=== PATIENT | female | born 1945 | race Two or more races ===

== ENCOUNTER 2017-10-07 12:17 | Inpatient (IN) | payer MEDICARE, MEDICAID ==
[~2017-10-07] VITALS: Ht 160 cm; Wt 72.6 kg
[2017-10-07] MEDS ORDERED: NS 1000ml 2,200 ML IVLG ONE (12:30)
[2017-10-07 13:50] LABS: BASOPHILS % (AUTO) 0.8 % (0.0-2.0); EOSINOPHILS % (AUTO) 1.2 % (0.0-3.0); HEMATOCRIT 45.8 % (37.0-47.0); HEMOGLOBIN 14.4 G/DL (12.0-16.0); LYMPHOCYTES % (AUTO) 37.7 % (20.0-45.0); MEAN CORPUSCULAR VOLUME 91 FL (80-99); MONOCYTES % (AUTO) 6.4 % (1.0-10.0); NEUTROPHILS % (AUTO) 53.9 % (45.0-75.0); PLATELET COUNT 161 K/UL (150-450); RED BLOOD COUNT 5.04 M/UL (4.20-5.40); RED CELL DISTRIBUTION WIDTH 12.3 % (11.6-14.8); WHITE BLOOD COUNT 8.6 K/UL (4.8-10.8)
[2017-10-07 13:52] VITALS: BP 140/68
[2017-10-07 14:02] LABS: ANION GAP 8 mmol/L (5-15); BLOOD UREA NITROGEN 22 mg/dL (7-18); CALCIUM 8.1 MG/DL (8.5-10.1); CARBON DIOXIDE 31 MMOL/L (21-32); CHLORIDE 100 MMOL/L (98-107); CREATININE 1.2 MG/DL (0.55-1.30); POTASSIUM 4.2 MMOL/L (3.5-5.1); SODIUM 139 MMOL/L (136-145)
--- NOTE | 2017-10-07 14:11 | Diagnostic Imaging Report ---
Indication: Chest pain Technique: One view of the chest Comparison: none Findings: There is some atelectasis at the right lung base. The heart is borderline enlarged. The remainder of the lungs and pleural spaces are clear. Impression: Right atelectasis. No acute process otherwise Borderline cardiomegaly
[2017-10-07 14:17] LABS: ALANINE AMINOTRANSFERASE 27 U/L (12-78); ALBUMIN 3.3 G/DL (3.4-5.0); ALKALINE PHOSPHATASE 87 U/L (46-116); ASPARTATE AMINO TRANSFERASE 18 U/L (15-37); BILIRUBIN,TOTAL 0.6 MG/DL (0.2-1.0); CKMB 1.2 NG/ML (0.0-3.6); CREATINE KINASE 74 U/L (26-308)
[2017-10-07] MEDS ORDERED: Enoxaparin 80mg Inj SUBQ ONE (14:30)
[2017-10-07] MEDS ORDERED: Aspirin Baby 81mg ORAL ONE (14:30)
[2017-10-07 15:30] LABS: APPEARANCE,URINE CLEAR; BILIRUBIN, URINE NEGATIVE (NEGATIVE); COLOR,URINE PALE YELLOW; GLUCOSE, URINE (UA) 2+ (NEGATIVE); KETONES,URINE NEGATIVE (NEGATIVE); LEUKOCYTE ESTERASE ,URINE NEGATIVE (NEGATIVE); NITRITE,URINE NEGATIVE (NEGATIVE); PH,URINE 5 (4.5-8.0); PROTEIN,URINE NEGATIVE (NEGATIVE); UROBILINOGEN,URINE NORMAL MG/DL (0.0-1.0)
[2017-10-07] MEDS ORDERED: Morphine Sulfate 4mg/ml Inj IVP PRN (15:45)
[2017-10-07] MEDS ORDERED: Albuterol/Ipratropium 3ml neb HHN PRN (15:45)
[2017-10-07] MEDS ORDERED: Miralax 17gm pkt ORAL PRN (15:45)
[2017-10-07] MEDS ORDERED: Promethazine/Codeine 5ml UD ORAL PRN (15:45)
[2017-10-07] MEDS ORDERED: LORazepam Inj 2mg/ml 1ml IV PRN (15:45)
[2017-10-07] MEDS ORDERED: LISINOPRIL5 MG ORAL (15:56)
[2017-10-07] MEDS ORDERED: LANTUS SOL100 UNIT/1 SUBQ (15:56)
[2017-10-07] MEDS ORDERED: TRADJENTA5 MG PO (15:56)
[2017-10-07] MEDS ORDERED: ATORVASTATIN CA20 MG ORAL (15:56)
[2017-10-07] MEDS ORDERED: ACTOS15 MG ORAL (16:03)
--- NOTE | 2017-10-07 16:19 | Emergency Room Report ---
History of Present Illness General Chief Complaint: Chest Pain Source: Patient, Family Member Present Illness HPI Patient complains of cough and congestion and chest pain. The patient has had a respiratory illness for the past month. She has had cough and congestion. She has had allergies a period in over the past couple days has developed chest pain and back pain. She denies abdominal pain. She denies nausea or vomiting. She denies dysuria or hematuria. She has no other complaints. Allergies: Coded Allergies: No Known Allergies (Unverified , 10/07/17) Patient History Past Medical History: see triage record, DM, HTN Social History: Denies: smoking, alcohol use, drug use Reviewed Nursing Documentation: PMH: Agreed, PSxH: Agreed Nursing Documentation-PMH Past Medical History: No History, Except For Hx Hypertension: Yes Hx Diabetes: Yes Review of Systems All Other Systems: negative except mentioned in HPI Physical Exam Vital Signs Date Time Temp Pulse Resp B/P (MAP) Pulse Ox O2 Delivery O2 Flow Rate FiO2 10/07/17 12:01 99.0 104 16 123/86 96 Room Air Sp02 EP Interpretation: reviewed, normal General Appearance: no apparent distress, alert, GCS 15, non-toxic Head: normocephalic, atraumatic Eyes: bilateral eye normal inspection, bilateral eye PERRL ENT: hearing grossly normal, normal pharynx, no angioedema, normal voice Neck: full range of motion, supple/symm/no masses Respiratory: chest non-tender, lungs clear, normal breath sounds, speaking full sentences Cardiovascular #1: regular rate, rhythm, no edema Gastrointestinal: normal bowel sounds, non tender, soft, non-distended, no guarding, no rebound Rectal: deferred Musculoskeletal: back normal, gait/station normal, normal range of motion, non- tender Neurologic: alert, oriented x3, responsive, motor strength/tone normal, sensory intact, speech normal Psychiatric: judgement/insight normal, memory normal, mood/affect normal, no suicidal/homicidal ideation Skin: normal color, no rash, warm/dry, well hydrated Medical Decision Making Diagnostic Impression: Primary Impression: NSTEMI (non-ST elevated myocardial infarction) Additional Impression: Bronchitis ER Course This patient presented with respiratory symptoms. However, she does not have an elevated troponin. Chest x-ray showed borderline cardiomegaly. She was given aspirin and subcutaneous Lovenox. She is admitted for further evaluation by cardiology. There is no evidence of pneumonia or bacterial infection. She may have a viral illness versus a chronic cough/GERD. Regardless, this patient was admitted for further evaluation and for NSTEMI. This patient is critically ill. This patient required complex medical decision- making, aggressive intervention, extensive laboratory workup and monitoring. Critical care time: 40 minutes. Laboratory Tests Test 10/07/17 12:05 10/07/17 14:28 White Blood Count 8.6 K/UL (4.8-10.8) Red Blood Count 5.04 M/UL (4.20-5.40) Hemoglobin 14.4 G/DL (12.0-16.0) Hematocrit 45.8 % (37.0-47.0) Mean Corpuscular Volume 91 FL (80-99) Mean Corpuscular Hemoglobin 28.5 PG (27.0-31.0) Mean Corpuscular Hemoglobin Concent 31.4 G/DL (32.0-36.0) L Red Cell Distribution Width 12.3 % (11.6-14.8) Platelet Count 161 K/UL (150-450) Mean Platelet Volume 13.7 FL (6.5-10.1) H Neutrophils (%) (Auto) 53.9 % (45.0-75.0) Lymphocytes (%) (Auto) 37.7 % (20.0-45.0) Monocytes (%) (Auto) 6.4 % (1.0-10.0) Eosinophils (%) (Auto) 1.2 % (0.0-3.0) Basophils (%) (Auto) 0.8 % (0.0-2.0) Prothrombin Time 10.1 SEC (9.30-11.50) Prothrombin Time INR 1.0 (0.9-1.1) PTT 28 SEC (23-33) Sodium Level 139 MMOL/L (136-145) Potassium Level 4.2 MMOL/L (3.5-5.1) Chloride Level 100 MMOL/L (98-107) Carbon Dioxide Level 31 MMOL/L (21-32) Anion Gap 8 mmol/L (5-15) Blood Urea Nitrogen 22 mg/dL (7-18) H Creatinine 1.2 MG/DL (0.55-1.30) Estimate Glomerular Filtration Rate mL/min (>60) Glucose Level 300 MG/DL (74-106) H Lactic Acid Level 1.70 mmol/L (0.66-2.22) Calcium Level 8.1 MG/DL (8.5-10.1) L Total Bilirubin 0.6 MG/DL (0.2-1.0) Aspartate Amino Transferase (AST) 18 U/L (15-37) Alanine Aminotransferase (ALT) 27 U/L (12-78) Alkaline Phosphatase 87 U/L (46-116) Total Creatine Kinase 74 U/L (26-308) Creatine Kinase MB 1.2 NG/ML (0.0-3.6) Creatine Kinase MB Relative Index 1.6 Troponin I 0.132 ng/mL (0.000-0.056) Pro-B-Type Natriuretic Peptide 401 pg/mL (0-125) H Total Protein 6.6 G/DL (6.4-8.2) Albumin 3.3 G/DL (3.4-5.0) L Globulin 3.3 g/dL Albumin/Globulin Ratio 1.0 (1.0-2.7) Urine Color Pale yellow Urine Appearance Clear Urine pH 5 (4.5-8.0) Urine Specific [place] 1.010 (1.005-1.035) Urine Protein Negative (NEGATIVE) Urine Glucose (UA) 2+ (NEGATIVE) H Urine Ketones Negative (NEGATIVE) Urine Occult Blood Negative (NEGATIVE) Urine Nitrite Negative (NEGATIVE) Urine Bilirubin Negative (NEGATIVE) Urine Urobilinogen Normal MG/DL (0.0-1.0) Urine Leukocyte Esterase Negative (NEGATIVE) Microbiology Date/Time Source Procedure Growth Status 10/07/17 12:05 Nasal Nares Influenza Types A,B Antigen (IDRIS) - Final Complete EKG Diagnostic Results Rate: tachycardiac Rhythm: other - s.tachycardia ST Segments: no acute changes Other Impression Qwave in lead V1 Chest X-Ray Diagnostic Results Chest X-Ray Diagnostic Results : Chest X-Ray Ordered: Yes # of Views/Limited/Complete: 1 View Indication: Chest Pain EP Interpretation: No Interpretation: no consolidation, no effusion, no pneumothorax, no acute cardiopulmonary disease, other - cardiomegaly Impression: No acute disease Electronically Signed by: Yudelka Last Vital Signs Date Time Temp Pulse Resp B/P (MAP) Pulse Ox O2 Delivery O2 Flow Rate FiO2 10/07/17 13:52 99.0 82 20 140/68 96 Room Air Disposition: ADMITTED INPATIENT Condition: Serious Referrals: NON PHYSICIAN (PCP) YARELIS BAXTER D.O. Oct 07, 2017 16:19
[2017-10-07 17:07] VITALS: BP 145/69
--- NOTE | 2017-10-07 17:20 | Cardiac Electrophysiology PN ---
Subjective Subjective Seen in ER. Consult dictated [id number] Objective Last 24 Hour Vital Signs Date Time Temp Pulse Resp B/P (MAP) Pulse Ox O2 Delivery O2 Flow Rate FiO2 10/07/17 17:07 99.0 83 18 145/69 96 Room Air 10/07/17 13:52 99.0 82 20 140/68 96 Room Air 10/07/17 13:52 82 20 Room Air 10/07/17 12:01 99.0 104 16 123/86 96 Room Air Laboratory Tests Test 10/07/17 12:05 10/07/17 14:28 White Blood Count 8.6 K/UL (4.8-10.8) Red Blood Count 5.04 M/UL (4.20-5.40) Hemoglobin 14.4 G/DL (12.0-16.0) Hematocrit 45.8 % (37.0-47.0) Mean Corpuscular Volume 91 FL (80-99) Mean Corpuscular Hemoglobin 28.5 PG (27.0-31.0) Mean Corpuscular Hemoglobin Concent 31.4 G/DL (32.0-36.0) L Red Cell Distribution Width 12.3 % (11.6-14.8) Platelet Count 161 K/UL (150-450) Mean Platelet Volume 13.7 FL (6.5-10.1) H Neutrophils (%) (Auto) 53.9 % (45.0-75.0) Lymphocytes (%) (Auto) 37.7 % (20.0-45.0) Monocytes (%) (Auto) 6.4 % (1.0-10.0) Eosinophils (%) (Auto) 1.2 % (0.0-3.0) Basophils (%) (Auto) 0.8 % (0.0-2.0) Prothrombin Time 10.1 SEC (9.30-11.50) Prothromb Time International Ratio 1.0 (0.9-1.1) Activated Partial Thromboplast Time 28 SEC (23-33) Sodium Level 139 MMOL/L (136-145) Potassium Level 4.2 MMOL/L (3.5-5.1) Chloride Level 100 MMOL/L (98-107) Carbon Dioxide Level 31 MMOL/L (21-32) Anion Gap 8 mmol/L (5-15) Blood Urea Nitrogen 22 mg/dL (7-18) H Creatinine 1.2 MG/DL (0.55-1.30) Estimat Glomerular Filtration Rate mL/min (>60) Glucose Level 300 MG/DL (74-106) H Lactic Acid Level 1.70 mmol/L (0.66-2.22) Calcium Level 8.1 MG/DL (8.5-10.1) L Total Bilirubin 0.6 MG/DL (0.2-1.0) Aspartate Amino Transf (AST/SGOT) 18 U/L (15-37) Alanine Aminotransferase (ALT/SGPT) 27 U/L (12-78) Alkaline Phosphatase 87 U/L (46-116) Total Creatine Kinase 74 U/L (26-308) Creatine Kinase MB 1.2 NG/ML (0.0-3.6) Creatine Kinase MB Relative Index 1.6 Troponin I 0.132 ng/mL (0.000-0.056) Pro-B-Type Natriuretic Peptide 401 pg/mL (0-125) H Total Protein 6.6 G/DL (6.4-8.2) Albumin 3.3 G/DL (3.4-5.0) L Globulin 3.3 g/dL Albumin/Globulin Ratio 1.0 (1.0-2.7) Urine Color Pale yellow Urine Appearance Clear Urine pH 5 (4.5-8.0) Urine Specific [place] 1.010 (1.005-1.035) Urine Protein Negative (NEGATIVE) Urine Glucose (UA) 2+ (NEGATIVE) H Urine Ketones Negative (NEGATIVE) Urine Occult Blood Negative (NEGATIVE) Urine Nitrite Negative (NEGATIVE) Urine Bilirubin Negative (NEGATIVE) Urine Urobilinogen Normal MG/DL (0.0-1.0) Urine Leukocyte Esterase Negative (NEGATIVE) Microbiology Date/Time Source Procedure Growth Status 10/07/17 12:05 Nasal Nares Influenza Types A,B Antigen (IDRIS) - Final Complete TRINIDAD ARNOLD Oct 07, 2017 17:20
[2017-10-07] MEDS: Cefepime HCl 2 GM in NS 110 ML IV SCH (18:27)
[2017-10-07] MEDS: NovoLOG Insulin Flexpen SUBQ SCH ×2 (18:30→20:52)
[2017-10-07] MEDS ORDERED: Vancomycin 1250mg/D5W 250ml IVPB ONE (20:00)
[2017-10-07 20:10] VITALS: BP 129/66
[2017-10-07] MEDS: Metoprolol 25mg tab ORAL SCH (20:50)
[2017-10-07] MEDS: Heparin 5000 units/ml inj SUBQ SCH (20:51)
--- NOTE | 2017-10-07 22:33 | Consultation ---
DATE OF CONSULTATION: 10/07/2017 CARDIOLOGY CONSULTATION CONSULTING PHYSICIAN: Agus Reed M.D. REASON FOR CONSULTATION: Chest pain. HISTORY OF PRESENT ILLNESS: The patient is a very pleasant 72-year-old lady with history of hypertension, diabetes, hyperlipidemia, and obesity, who presented to the emergency room with cough and congestion as well as chest pain. The patient has been having respiratory illness for the last one month. The patient denies any abdominal pain, nausea, vomiting, near syncope, or presyncope. Blood pressure in the emergency room was 122/86 with a pulse of 104. Her troponin, however, was elevated at 0.132. A Cardiology consultation was obtained for further evaluation and management. PAST MEDICAL HISTORY: 1. Hypertension. 2. Diabetes. 3. Hyperlipidemia. MEDICATIONS: Per reconciliation include lisinopril and diabetes medication. SOCIAL HISTORY: She lives at home. Does not smoke or drink alcohol. FAMILY HISTORY: Noncontributory. REVIEW OF SYSTEMS: Review of systems was performed and was negative other than what was mentioned in the history of present illness. PHYSICAL EXAMINATION: VITAL SIGNS: Blood pressure of 145/67, pulse 82, respirations 18, and temperature 99 degrees. HEAD AND NECK: Shows no JVD. LUNGS: Coarse rhonchi. CARDIOVASCULAR: Shows regular S1 and S2 with no gallop or murmur. ABDOMEN: Soft. EXTREMITIES: No pitting edema. LABORATORY AND DIAGNOSTIC DATA: Her EKG shows sinus rhythm with nonspecific ST-T wave abnormalities. Her echocardiogram today showed normal left ventricular systolic function, ejection fraction of 60% with no evidence of pericardial effusion. No aortic regurgitation. Labs, white count of 8.6, hemoglobin 14.4, hematocrit 45.8, and platelet count of 161. Sodium 139, potassium 4.2, BUN of 22, creatinine 1.2, and glucose of 300. Troponin is 0.132. ASSESSMENT AND PLAN: 1. Troponin leak. CPK and CK-MB are both normal. The patient has only mild azotemia. I will give the patient aspirin, beta-tam, and statin. Repeat cardiac enzymes. Her ejection fraction is also within normal range of 60%. Follow up troponins. The patient may need a stress test or need to be transferred for cardiac catheterization. 2. Hypertension. Start the patient on Lopressor and reevaluate troponin. 3. Diabetes. 4. Shortness of breath, possible pneumonia, on vancomycin and cefepime. Under the management of Dr. Yen. Thank you very much, Dr. Chaudhary, for allowing me to participate in the care of this patient. Please do not hesitate to contact me if you have any questions regarding my evaluation. Agus Reed M.D. DR: Luna JOB#: [id number] CC:
[2017-10-07] MEDS ORDERED: Vancomycin 1 GM in D5W 275 ML IV SCH (23:00)
[2017-10-08 00:22] VITALS: BP 133/76
[2017-10-08] MEDS: NovoLOG Insulin Flexpen SUBQ SCH ×4 (06:10→21:12)
[2017-10-08 06:27] LABS: BASOPHILS % (AUTO) 0.6 % (0.0-2.0); EOSINOPHILS % (AUTO) 1.8 % (0.0-3.0); HEMOGLOBIN 12.4 G/DL (12.0-16.0); LYMPHOCYTES % (AUTO) 46.6 % (20.0-45.0); MEAN CORPUSCULAR VOLUME 92 FL (80-99); MONOCYTES % (AUTO) 6.9 % (1.0-10.0); NEUTROPHILS % (AUTO) 44.1 % (45.0-75.0); PLATELET COUNT 148 K/UL (150-450); RED BLOOD COUNT 4.03 M/UL (4.20-5.40); RED CELL DISTRIBUTION WIDTH 12.6 % (11.6-14.8)
[2017-10-08 06:57] LABS: ALBUMIN 2.7 G/DL (3.4-5.0); ANION GAP 5 mmol/L (5-15); BLOOD UREA NITROGEN 17 mg/dL (7-18); CALCIUM 7.4 MG/DL (8.5-10.1); CARBON DIOXIDE 29 MMOL/L (21-32); CHLORIDE 106 MMOL/L (98-107); CHOLESTEROL 148 MG/DL (< 200); HDL CHOLESTEROL 37 MG/DL (40-60); PHOSPHORUS 3.1 MG/DL (2.5-4.9); POTASSIUM 3.5 MMOL/L (3.5-5.1); SODIUM 140 MMOL/L (136-145); TRIGLYCERIDES 211 MG/DL (30-150)
[2017-10-08 08:00] VITALS: BP 143/77
[2017-10-08] MEDS: Aspirin EC 81mg tab ORAL SCH (09:18)
[2017-10-08] MEDS: Metoprolol 25mg tab ORAL SCH ×3 (09:20→21:07)
[2017-10-08] MEDS: Heparin 5000 units/ml inj SUBQ SCH ×2 (09:20→21:13)
[2017-10-08 12:00] VITALS: BP 129/67
--- NOTE | 2017-10-08 15:50 | Consultation ---
History of Present Illness General Date patient seen: Oct 08, 2017 Chief Complaint: Chest Pain Reason for Consultation: dysnea Present Illness HPI 72 year old female with hx of HTN, COPD presented to ER with complains of cough and congestion and chest pain. The patient has had a respiratory illness for the past month. She has had cough and congestion. Pt developed in the couple of days days chest pain and back pain. right shoulder pain She denies abdominal pain. She denies nausea or vomiting. Her troponin was positive and she is admitted to telemetry for further work up. Allergies: Coded Allergies: No Known Allergies (Unverified , 10/07/17) Medication History Scheduled Atorvastatin Calcium* (Atorvastatin Calcium*), 20 MG ORAL BEDTIME, (Reported) Insulin Glargine (Lantus), 0 SUBQ BEDTIME, (Reported) Lisinopril (Lisinopril*), 5 MG ORAL DAILY, (Reported) Pioglitazone Hcl* (Actos*), 15 MG ORAL DAILY, (Reported) Miscellaneous Medications Linagliptin (Tradjenta), 5 MG PO, (Reported) Patient History Healthcare decision maker N Resuscitation status Full Code Advanced Directive on File Past Medical/Surgical History Past Medical/Surgical History: (1) History of hypertension Review of Systems Constitutional: Reports: malaise, weakness Respiratory: Reports: shortness of breath, sputum Cardiovascular: Reports: chest pain Gastrointestinal: Reports: no symptoms Genitourinary: Reports: no symptoms Skin: Reports: no symptoms Physical Exam General Appearance: WD/WN Lines, tubes and drains: peripheral HEENT: normocephalic, atraumatic Neck: non-tender, normal alignment Respiratory/Chest: chest wall non-tender, lungs clear Breasts: no masses Cardiovascular/Chest: normal peripheral pulses Abdomen: normal bowel sounds Genitourinary/Rectal: normal genital exam Last 24 Hour Vital Signs Date Time Temp Pulse Resp B/P (MAP) Pulse Ox O2 Delivery O2 Flow Rate FiO2 10/08/17 12:00 72 10/08/17 12:00 97.2 71 18 129/67 94 Room Air 10/08/17 09:20 78 143/77 10/08/17 08:00 68 10/08/17 08:00 97.0 70 19 143/77 94 Room Air 10/08/17 06:45 65 20 Room Air 21 1/4/18 04:00 66 10/08/17 00:22 97.7 67 20 133/76 94 Room Air 10/08/17 00:00 67 10/07/17 20:50 77 129/66 10/07/17 20:10 96.8 77 20 129/66 94 10/07/17 20:00 75 10/07/17 17:15 99.0 83 18 145/69 96 Room Air 10/07/17 17:07 99.0 83 18 145/69 96 Room Air Intake and Output 10/07/17 10/08/17 19:00 07:00 Intake Total 240 ml Balance 240 ml Intake Oral 240 ml # Voids 1 Laboratory Tests Test 10/07/17 18:30 10/08/17 03:15 Troponin I 0.532 ng/mL (0.000-0.056) 0.372 ng/mL (0.000-0.056) White Blood Count 8.0 K/UL (4.8-10.8) Red Blood Count 4.03 M/UL (4.20-5.40) L Hemoglobin 12.4 G/DL (12.0-16.0) Hematocrit 37.0 % (37.0-47.0) Mean Corpuscular Volume 92 FL (80-99) Mean Corpuscular Hemoglobin 30.7 PG (27.0-31.0) Mean Corpuscular Hemoglobin Concent 33.4 G/DL (32.0-36.0) Red Cell Distribution Width 12.6 % (11.6-14.8) Platelet Count 148 K/UL (150-450) L Mean Platelet Volume 11.9 FL (6.5-10.1) H Neutrophils (%) (Auto) 44.1 % (45.0-75.0) L Lymphocytes (%) (Auto) 46.6 % (20.0-45.0) H Monocytes (%) (Auto) 6.9 % (1.0-10.0) Eosinophils (%) (Auto) 1.8 % (0.0-3.0) Basophils (%) (Auto) 0.6 % (0.0-2.0) Sodium Level 140 MMOL/L (136-145) Potassium Level 3.5 MMOL/L (3.5-5.1) Chloride Level 106 MMOL/L (98-107) Carbon Dioxide Level 29 MMOL/L (21-32) Anion Gap 5 mmol/L (5-15) Blood Urea Nitrogen 17 mg/dL (7-18) Creatinine 1.0 MG/DL (0.55-1.30) Estimat Glomerular Filtration Rate mL/min (>60) Glucose Level 182 MG/DL (74-106) #H Calcium Level 7.4 MG/DL (8.5-10.1) L Phosphorus Level 3.1 MG/DL (2.5-4.9) Albumin 2.7 G/DL (3.4-5.0) L Triglycerides Level 211 MG/DL (30-150) H Cholesterol Level 148 MG/DL (< 200) LDL Cholesterol 85 mg/dL (<100) HDL Cholesterol 37 MG/DL (40-60) L Cholesterol/HDL Ratio 4.0 (3.3-4.4) Thyroid Stimulating Hormone (TSH) 0.604 uiU/mL (0.358-3.740) Free Thyroxine 0.90 NG/DL (0.76-1.46) Height (Feet): 5 Height (Inches): 3.00 Weight (Pounds): 160 Medications Current Medications Medications (Trade) Dose Ordered Sig/Hair Route PRN Reason Start Time Stop Time Status Last Admin Dose Admin Acetaminophen (Tylenol) 650 mg Q4H PRN ORAL T>100.5 10/07/17 15:45 11/06/17 15:44 10/08/17 09:23 Albuterol/ Ipratropium (Albuterol/ Ipratropium) 3 ml Q4H PRN HHN Shortness of Breath 10/07/17 15:45 10/12/17 15:44 Aspirin (Ecotrin) 81 mg DAILY ORAL 10/08/17 09:00 11/07/17 08:59 10/08/17 09:18 Atorvastatin Calcium (Lipitor) 10 mg BEDTIME ORAL 10/07/17 21:00 11/06/17 20:59 10/07/17 20:50 Cefepime HCl 2 gm/ Sodium Chloride 110 ml @ 220 mls/hr DAILY@1800 IV 10/07/17 18:00 10/14/17 17:59 10/07/17 18:27 Dextrose (Dextrose 50%) STAT PRN IV Hypoglycemia 10/07/17 15:45 11/06/17 15:44 Heparin Sodium (Porcine) (Heparin 5000 units/ml) 5,000 units EVERY 12 HOURS SUBQ 10/07/17 21:00 11/06/17 20:59 10/08/17 09:20 Insulin Aspart (NovoLOG) BEFORE MEALS AND HS SUBQ 10/07/17 18:30 11/06/17 18:29 10/08/17 11:54 Lorazepam (Ativan 2mg/ml 1ml) 2 mg Q2H PRN IV For Anxiety 10/07/17 15:45 10/14/17 15:44 Metoprolol Tartrate (Lopressor) 25 mg Q12HR ORAL 10/07/17 21:00 11/06/17 20:59 10/08/17 09:20 Morphine Sulfate (Morphine Sulfate) 4 mg Q4H PRN IVP Severe Pain (Pain Scale 7-10) 10/07/17 15:45 10/14/17 15:44 Ondansetron HCl (Zofran) 4 mg Q6H PRN IVP Nausea & Vomiting 10/07/17 15:45 11/06/17 15:44 Polyethylene Glycol (Miralax) 17 gm DAILYPRN PRN ORAL Constipation 10/07/17 15:45 11/06/17 15:44 Promethazine HCl/ Codeine (Phenergan with Codeine) 5 ml Q4H PRN ORAL For Cough 10/07/17 15:45 11/06/17 15:44 Sodium Chloride 1,000 ml @ 50 mls/hr Q20H IV 10/07/17 17:00 11/06/17 16:59 10/08/17 13:07 Vancomycin HCl (Vanco rx to dose) 1 ea DAILY PRN MISC PER RX PROTOCOL 10/07/17 17:00 11/06/17 16:59 Vancomycin/Sodium Chloride 250 ml @ 166.667 mls/hr Q24H IVPB 10/08/17 20:00 10/13/17 19:59 Assessment/Plan Problem List: (1) NSTEMI (non-ST elevated myocardial infarction) ICD Codes: I21.4 - Non-ST elevation (NSTEMI) myocardial infarction SNOMED: 874856593 (2) Bronchitis ICD Codes: J40 - Bronchitis, not specified as acute or chronic SNOMED: 54448803 (3) History of hypertension ICD Codes: Z86.79 - Personal history of other diseases of the circulatory system SNOMED: 870603117 Assessment/Plan respiratory treatment serial troponin, echo cardio note reviewed check sputum JEFFREY FERGUSON Oct 08, 2017 15:50
[2017-10-08 16:00] VITALS: BP 134/72
--- NOTE | 2017-10-08 16:27 | Cardiac Electrophysiology PN ---
Assessment/Plan Assessment/Plan 1. Troponin leak 0.5 and 0.3. CPK and CK-MB are both normal. The patient has only mild azotemia. Continue aspirin, Lopressor 25 bid, and statin. Her ejection fraction is also within normal range of 60%. Will schedule for nuclear stress test tomorrow. 2. Hypertension.On Lopressor 3. Diabetes. 4. Shortness of breath, possible pneumonia, on vancomycin and cefepime. Under the management of Dr. Yen. Subjective Subjective Feeling better. No chest pain or SOB. RN at bedside. Objective Last 24 Hour Vital Signs Date Time Temp Pulse Resp B/P (MAP) Pulse Ox O2 Delivery O2 Flow Rate FiO2 10/08/17 12:00 72 10/08/17 12:00 97.2 71 18 129/67 94 Room Air 10/08/17 09:20 78 143/77 10/08/17 08:00 68 10/08/17 08:00 97.0 70 19 143/77 94 Room Air 10/08/17 06:45 65 20 Room Air 21 10/08/17 04:00 66 10/08/17 00:22 97.7 67 20 133/76 94 Room Air 10/08/17 00:00 67 10/07/17 20:50 77 129/66 10/07/17 20:10 96.8 77 20 129/66 94 10/07/17 20:00 75 10/07/17 17:15 99.0 83 18 145/69 96 Room Air 10/07/17 17:07 99.0 83 18 145/69 96 Room Air Intake and Output 10/07/17 10/08/17 19:00 07:00 Intake Total 240 ml Balance 240 ml Intake Oral 240 ml # Voids 1 Laboratory Tests Test 10/07/17 18:30 10/08/17 03:15 10/08/17 15:31 Troponin I 0.532 ng/mL (0.000-0.056) 0.372 ng/mL (0.000-0.056) Pending White Blood Count 8.0 K/UL (4.8-10.8) Red Blood Count 4.03 M/UL (4.20-5.40) L Hemoglobin 12.4 G/DL (12.0-16.0) Hematocrit 37.0 % (37.0-47.0) Mean Corpuscular Volume 92 FL (80-99) Mean Corpuscular Hemoglobin 30.7 PG (27.0-31.0) Mean Corpuscular Hemoglobin Concent 33.4 G/DL (32.0-36.0) Red Cell Distribution Width 12.6 % (11.6-14.8) Platelet Count 148 K/UL (150-450) L Mean Platelet Volume 11.9 FL (6.5-10.1) H Neutrophils (%) (Auto) 44.1 % (45.0-75.0) L Lymphocytes (%) (Auto) 46.6 % (20.0-45.0) H Monocytes (%) (Auto) 6.9 % (1.0-10.0) Eosinophils (%) (Auto) 1.8 % (0.0-3.0) Basophils (%) (Auto) 0.6 % (0.0-2.0) Sodium Level 140 MMOL/L (136-145) Potassium Level 3.5 MMOL/L (3.5-5.1) Chloride Level 106 MMOL/L (98-107) Carbon Dioxide Level 29 MMOL/L (21-32) Anion Gap 5 mmol/L (5-15) Blood Urea Nitrogen 17 mg/dL (7-18) Creatinine 1.0 MG/DL (0.55-1.30) Estimat Glomerular Filtration Rate mL/min (>60) Glucose Level 182 MG/DL (74-106) #H Calcium Level 7.4 MG/DL (8.5-10.1) L Phosphorus Level 3.1 MG/DL (2.5-4.9) Albumin 2.7 G/DL (3.4-5.0) L Triglycerides Level 211 MG/DL (30-150) H Cholesterol Level 148 MG/DL (< 200) LDL Cholesterol 85 mg/dL (<100) HDL Cholesterol 37 MG/DL (40-60) L Cholesterol/HDL Ratio 4.0 (3.3-4.4) Thyroid Stimulating Hormone (TSH) 0.604 uiU/mL (0.358-3.740) Free Thyroxine 0.90 NG/DL (0.76-1.46) Microbiology Date/Time Source Procedure Growth Status 10/07/17 12:05 Nasal Nares Influenza Types A,B Antigen (IDRIS) - Final Complete Objective HEAD AND NECK: Shows no JVD. LUNGS: Coarse rhonchi. CARDIOVASCULAR: Shows regular S1 and S2 with no gallop or murmur. ABDOMEN: Soft. EXTREMITIES: No pitting edema. TRINIDAD ARNOLD Oct 08, 2017 16:27
[2017-10-08] MEDS: Cefepime HCl 2 GM in NS 110 ML IV SCH (17:06)
[2017-10-08 20:00] VITALS: BP 147/76
[2017-10-08] MEDS: Vancomycin 750mg/NS 250ml IVPB SCH (20:30)
--- NOTE | 2017-10-08 20:30 | History and Physical Report ---
DATE OF ADMISSION: 10/07/2017 TIME SEEN: At 2 p.m. CONSULTANTS: 1. Jovi Chaudhary D.O. 2. Agus Reed M.D. 3. Christian Yen M.D. CHIEF COMPLAINT: Chest pain. BRIEF HISTORY: The patient is a 72-year-old female, who lives at home, presents to [place] ER last night with history of chest pain substernal and sharp. No dizziness. No loss of consciousness. The patient was diagnosed with NSTEMI and coughing and chest pain being admitted to [facility] for further care. Currently, calm in bed, slight chest pain. No complaint. PAST MEDICAL HISTORY: Includes diabetes, hypercholesterol, and asthma. PAST SURGICAL HISTORY: None. MEDICATIONS: Include vancomycin, Ecotrin, heparin, Lopressor, Lipitor, NovoLog, cefepime, vancomycin, codeine, Ativan, Zofran, MiraLAX, morphine, Tylenol, and albuterol. ALLERGIES: Denies. SOCIAL HISTORY: No smoking. No alcohol. No intravenous drug use. FAMILY HISTORY: Noncontributory. REVIEW OF SYSTEMS: Slight chest pain. Slight short of breath. No nausea, vomiting, or diarrhea. PHYSICAL EXAMINATION: GENERAL: Calm in bed, oriented x2, in no acute distress. VITAL SIGNS: Show temperature is 97, pulse 71, respirations 18, and blood pressure 129/67. CARDIOVASCULAR: No murmur. LUNGS: Distant and clear. ABDOMEN: Bowel sounds positive. Nontender. Nondistended. EXTREMITIES: No cyanosis or edema. NEUROLOGIC: The patient moves all extremities, slightly weak. LABORATORY DATA: Labs show sodium 148 otherwise CBC is normal. Glucose is 182. Troponin is 0.52, second one is 0.37. INR is 1.0. PTT is 28. Urinalysis is 2+ glucose. ASSESSMENT: 1. Non-ST segment elevation myocardial infarction. 2. Chest pain. 3. Cough. 4. Asthma. 5. Hypercholesterol. PLAN: 1. Troponin every 8 hours x3. 2. EKG in the morning. 3. Pain control. 4. O2 and pulmonary treatment. 5. Dietary followup. 6. Blood sugar control. 7. OT, PT, and dietary evaluation. 8. CBC and BMP in the morning. 9. Dr. Reed and Dr. Yen to consult. Jovi Chaudhary D.O. DR: JUSTYNA JOB#: [id number] CC:
[2017-10-09] VITALS: BP 140/75
[2017-10-09 04:00] VITALS: BP 152/82
[2017-10-09] MEDS ORDERED: Lexiscan 0.4mg/5ml syringe IV ONE (06:00)
[2017-10-09] MEDS: NovoLOG Insulin Flexpen SUBQ SCH ×4 (06:36→20:57)
[2017-10-09 07:32] LABS: BASOPHILS % (AUTO) 0.8 % (0.0-2.0); EOSINOPHILS % (AUTO) 1.6 % (0.0-3.0); HEMOGLOBIN 13.1 G/DL (12.0-16.0); LYMPHOCYTES % (AUTO) 43.4 % (20.0-45.0); MEAN CORPUSCULAR VOLUME 92 FL (80-99); MONOCYTES % (AUTO) 6.2 % (1.0-10.0); NEUTROPHILS % (AUTO) 48.2 % (45.0-75.0); PLATELET COUNT 164 K/UL (150-450); RED BLOOD COUNT 4.36 M/UL (4.20-5.40); RED CELL DISTRIBUTION WIDTH 12.6 % (11.6-14.8); WHITE BLOOD COUNT 8.6 K/UL (4.8-10.8)
[2017-10-09 08:00] LABS: ANION GAP 9 mmol/L (5-15); BLOOD UREA NITROGEN 9 mg/dL (7-18); CALCIUM 8.3 MG/DL (8.5-10.1); CARBON DIOXIDE 28 MMOL/L (21-32); CHLORIDE 105 MMOL/L (98-107); CREATININE 0.8 MG/DL (0.55-1.30); POTASSIUM 3.4 MMOL/L (3.5-5.1); SODIUM 142 MMOL/L (136-145)
[2017-10-09 08:19] VITALS: BP 150/79
[2017-10-09] MEDS: Metoprolol 25mg tab ORAL SCH ×2 (09:00→20:53)
[2017-10-09] MEDS: Aspirin EC 81mg tab ORAL SCH (09:06)
[2017-10-09] MEDS: Heparin 5000 units/ml inj SUBQ SCH ×2 (09:09→20:54)
[2017-10-09 12:00] VITALS: BP 156/98
--- NOTE | 2017-10-09 14:33 | General Progress Note ---
Assessment/Plan Problem List: (1) Asthma ICD Codes: J45.909 - Unspecified asthma, uncomplicated SNOMED: 167975795 (2) Hypercholesteremia ICD Codes: E78.00 - Pure hypercholesterolemia, unspecified SNOMED: 05550892 (3) NSTEMI (non-ST elevated myocardial infarction) ICD Codes: I21.4 - Non-ST elevation (NSTEMI) myocardial infarction SNOMED: 369559437 (4) Bronchitis ICD Codes: J40 - Bronchitis, not specified as acute or chronic SNOMED: 78005556 (5) History of hypertension ICD Codes: Z86.79 - Personal history of other diseases of the circulatory system SNOMED: 687131755 Status: stable, progressing, tolerating diet Assessment/Plan otp tdiet cardio f/u bp pain control cbc bmp am Subjective Constitutional: Reports: weakness Allergies: Coded Allergies: No Known Allergies (Unverified , 10/07/17) All Systems: reviewed and negative except above Subjective sl chest pain sob Objective Last 24 Hour Vital Signs Date Time Temp Pulse Resp B/P (MAP) Pulse Ox O2 Delivery O2 Flow Rate FiO2 10/09/17 12:00 73 10/09/17 12:00 97.3 87 20 156/98 94 Room Air 10/09/17 09:00 67 150/79 10/09/17 08:19 97.2 67 20 150/79 93 Room Air 10/09/17 08:00 86 10/09/17 07:00 78 16 Room Air 21 10/09/17 04:00 69 10/09/17 04:00 98.1 81 20 152/82 95 10/09/17 00:00 65 10/09/17 00:00 98.2 79 20 140/75 94 10/08/17 21:00 67 147/76 10/08/17 20:36 67 18 Room Air 21 10/08/17 20:00 98.1 67 20 147/76 95 10/08/17 20:00 65 10/08/17 16:00 97.7 68 19 134/72 95 Room Air 10/08/17 16:00 65 Intake and Output 10/08/17 10/09/17 19:00 07:00 Intake Total 240 ml 710.000 ml Balance 240 ml 710.000 ml Intake Oral 240 ml 60 ml IV Total 650.000 ml # Voids 1 4 Laboratory Tests 10/08/17 15:31: Troponin I 0.248H 10/09/17 05:45: Troponin I 0.159H, White Blood Count 8.6, Red Blood Count 4.36, Hemoglobin 13.1 , Hematocrit 40.0, Mean Corpuscular Volume 92, Mean Corpuscular Hemoglobin 30.0 , Mean Corpuscular Hemoglobin Concent 32.7, Red Cell Distribution Width 12.6, Platelet Count 164, Mean Platelet Volume 14.9H, Neutrophils (%) (Auto) 48.2, Lymphocytes (%) (Auto) 43.4, Monocytes (%) (Auto) 6.2, Eosinophils (%) (Auto) 1.6, Basophils (%) (Auto) 0.8, Sodium Level 142, Potassium Level 3.4L, Chloride Level 105, Carbon Dioxide Level 28, Anion Gap 9, Blood Urea Nitrogen 9, Creatinine 0.8, Estimat Glomerular Filtration Rate , Glucose Level 172H, Calcium Level 8.3L Height (Feet): 5 Height (Inches): 3.00 Weight (Pounds): 160 General Appearance: lethargic EENT: normal ENT inspection Neck: normal alignment Cardiovascular: regularly irregular Respiratory/Chest: chest wall non-tender, lungs clear, normal breath sounds Abdomen: normal bowel sounds, non tender, soft Extremities: normal inspection Edema: no edema noted Arm (L), no edema noted Arm (R), no edema noted Leg (L), no edema noted Leg (R), no edema noted Pedal (L), no edema noted Pedal (R), no edema noted Generalized Neurologic: responsive, motor weakness Skin: normal pigmentation, warm/dry ROBERT LEONARDO Oct 09, 2017 14:33
--- NOTE | 2017-10-09 14:33 | Diagnostic Imaging Report ---
Indication: Chest pain Technique: Resting exam performed using IV administration 10.8 mCi 99m technetium. SPECT images obtained. Stress portion of the exam was canceled by the referring physician Comparison: none Findings: Resting SPECT images demonstrate a perfusion defect in the anteroseptal wall extending into the apex. Impression: Apical and anteroseptal wall resting defect, consistent with infarct Unable to assess for ischemia in the absence of post stress imaging
--- NOTE | 2017-10-09 15:34 | Pulmonology Progress Note ---
Assessment/Plan Problems: (1) NSTEMI (non-ST elevated myocardial infarction) (2) Bronchitis (3) History of hypertension Assessment/Plan still coughing stress test partially done Findings: Resting SPECT images demonstrate a perfusion defect in the anteroseptal wall extending into the apex. Impression: Apical and anteroseptal wall resting defect, consistent with infarct awaiting cardiology recommendations continue antitussives. Lidocain inhalation for severe cough Subjective ROS Limited/Unobtainable: No Interval Events: still coughing a lot, stress test done Constitutional: Reports: no symptoms HEENT: Repors: no symptoms Respiratory: Reports: no symptoms Allergies: Coded Allergies: No Known Allergies (Unverified , 10/07/17) Objective Last 24 Hour Vital Signs Date Time Temp Pulse Resp B/P (MAP) Pulse Ox O2 Delivery O2 Flow Rate FiO2 10/09/17 12:00 73 10/09/17 12:00 97.3 87 20 156/98 94 Room Air 10/09/17 09:00 67 150/79 10/09/17 08:19 97.2 67 20 150/79 93 Room Air 10/09/17 08:00 86 10/09/17 07:00 78 16 Room Air 21 10/09/17 04:00 69 10/09/17 04:00 98.1 81 20 152/82 95 10/09/17 00:00 65 10/09/17 00:00 98.2 79 20 140/75 94 10/08/17 21:00 67 147/76 10/08/17 20:36 67 18 Room Air 21 10/08/17 20:00 98.1 67 20 147/76 95 10/08/17 20:00 65 10/08/17 16:00 97.7 68 19 134/72 95 Room Air 10/08/17 16:00 65 Intake and Output 10/08/17 10/09/17 19:00 07:00 Intake Total 240 ml 710.000 ml Balance 240 ml 710.000 ml Intake Oral 240 ml 60 ml IV Total 650.000 ml # Voids 1 4 General Appearance: WD/WN HEENT: normocephalic Respiratory/Chest: chest wall non-tender, lungs clear Breasts: no masses Cardiovascular: normal peripheral pulses Abdomen: normal bowel sounds, soft, non tender Microbiology Date/Time Source Procedure Growth Status 10/07/17 12:05 Blood Blood Culture - Preliminary NO GROWTH AFTER 24 HOURS Resulted 10/07/17 12:05 Blood Blood Culture - Preliminary NO GROWTH AFTER 24 HOURS Resulted 10/07/17 12:05 Nasal Nares Influenza Types A,B Antigen (IDRIS) - Final Complete Laboratory Tests 10/09/17 05:45: White Blood Count 8.6, Red Blood Count 4.36, Hemoglobin 13.1, Hematocrit 40.0, Mean Corpuscular Volume 92, Mean Corpuscular Hemoglobin 30.0, Mean Corpuscular Hemoglobin Concent 32.7, Red Cell Distribution Width 12.6, Platelet Count 164, Mean Platelet Volume 14.9H, Neutrophils (%) (Auto) 48.2, Lymphocytes (%) (Auto) 43.4, Monocytes (%) (Auto) 6.2, Eosinophils (%) (Auto) 1.6, Basophils (%) (Auto ) 0.8, Sodium Level 142, Potassium Level 3.4L, Chloride Level 105, Carbon Dioxide Level 28, Anion Gap 9, Blood Urea Nitrogen 9, Creatinine 0.8, Estimat Glomerular Filtration Rate , Glucose Level 172H, Calcium Level 8.3L, Troponin I 0.159H Current Medications Medications (Trade) Dose Ordered Sig/Hair Route PRN Reason Start Time Stop Time Status Last Admin Dose Admin Acetaminophen (Tylenol) 650 mg Q4H PRN ORAL Mild Pain/Temp > 100.5 10/09/17 11:45 11/08/17 11:44 10/09/17 10:25 Albuterol/ Ipratropium (Albuterol/ Ipratropium) 3 ml Q4H PRN HHN Shortness of Breath 10/07/17 15:45 10/12/17 15:44 Aspirin (Ecotrin) 81 mg DAILY ORAL 10/08/17 09:00 11/07/17 08:59 10/09/17 09:06 Atorvastatin Calcium (Lipitor) 10 mg BEDTIME ORAL 10/07/17 21:00 11/06/17 20:59 10/08/17 21:07 Cefepime HCl 2 gm/ Sodium Chloride 110 ml @ 220 mls/hr DAILY@1800 IV 10/07/17 18:00 10/14/17 17:59 10/08/17 17:06 Dextrose (Dextrose 50%) STAT PRN IV Hypoglycemia 10/07/17 15:45 11/06/17 15:44 Heparin Sodium (Porcine) (Heparin 5000 units/ml) 5,000 units EVERY 12 HOURS SUBQ 10/07/17 21:00 11/06/17 20:59 10/09/17 09:09 Insulin Aspart (NovoLOG) BEFORE MEALS AND HS SUBQ 10/07/17 18:30 11/06/17 18:29 10/09/17 12:06 Lorazepam (Ativan 2mg/ml 1ml) 2 mg Q2H PRN IV For Anxiety 10/07/17 15:45 10/14/17 15:44 Metoprolol Tartrate (Lopressor) 25 mg Q12HR ORAL 10/07/17 21:00 11/06/17 20:59 10/08/17 09:20 Morphine Sulfate (Morphine Sulfate) 4 mg Q4H PRN IVP Severe Pain (Pain Scale 7-10) 10/07/17 15:45 10/14/17 15:44 Ondansetron HCl (Zofran) 4 mg Q6H PRN IVP Nausea & Vomiting 10/07/17 15:45 11/06/17 15:44 Polyethylene Glycol (Miralax) 17 gm DAILYPRN PRN ORAL Constipation 10/07/17 15:45 11/06/17 15:44 Promethazine HCl/ Codeine (Phenergan with Codeine) 5 ml Q4H PRN ORAL For Cough 10/07/17 15:45 11/06/17 15:44 Sodium Chloride 1,000 ml @ 50 mls/hr Q20H IV 10/07/17 17:00 11/06/17 16:59 10/09/17 04:00 Vancomycin HCl (Vanco rx to dose) 1 ea DAILY PRN MISC PER RX PROTOCOL 10/07/17 17:00 11/06/17 16:59 Vancomycin/Sodium Chloride 250 ml @ 166.667 mls/hr Q24H IVPB 10/08/17 20:00 10/13/17 19:59 10/08/17 20:30 JEFFREY FERGUSON Oct 09, 2017 15:34
[2017-10-09] MEDS ORDERED: Lidocaine 1% MPF 10mg/ml 5ml HHN PRN (15:45)
[2017-10-09 16:00] VITALS: BP 149/82
[2017-10-09] MEDS: Cefepime HCl 2 GM in NS 110 ML IV SCH (17:58)
--- NOTE | 2017-10-09 19:04 | Cardiac Electrophysiology PN ---
Assessment/Plan Assessment/Plan 1. Troponin leak 0.5 and 0.3. CPK and CK-MB are both normal. Continue aspirin, Lopressor 25 bid, and statin. Her ejection fraction is also within normal range of 60%. Will schedule for Lexiscan Cardiolite nuclear stress test Thursday 2. Atrial fib with RVR. Converted to SR. Continue Metoprolol. 3. Hypertension.On Lopressor 4. Diabetes. 5. Shortness of breath, possible pneumonia, on vancomycin and cefepime. Under the management of Dr. Yen. Subjective Subjective No chest pain or SOB. Developed atrial fib with rate 140s and then spontaneously converted to SR in [address] Waterman did not do the stress test for elevated troponin. Patient has no chest pain. Objective Last 24 Hour Vital Signs Date Time Temp Pulse Resp B/P (MAP) Pulse Ox O2 Delivery O2 Flow Rate FiO2 10/09/17 16:00 97.2 82 20 149/82 94 Room Air 10/09/17 16:00 97 10/09/17 12:00 73 10/09/17 12:00 97.3 87 20 156/98 94 Room Air 10/09/17 09:00 67 150/79 10/09/17 08:19 97.2 67 20 150/79 93 Room Air 10/09/17 08:00 86 10/09/17 07:00 78 16 Room Air 21 10/09/17 04:00 69 10/09/17 04:00 98.1 81 20 152/82 95 10/09/17 00:00 65 10/09/17 00:00 98.2 79 20 140/75 94 10/08/17 21:00 67 147/76 10/08/17 20:36 67 18 Room Air 21 10/08/17 20:00 98.1 67 20 147/76 95 10/08/17 20:00 65 Intake and Output 10/08/17 10/09/17 19:00 07:00 Intake Total 240 ml 710.000 ml Balance 240 ml 710.000 ml Intake Oral 240 ml 60 ml IV Total 650.000 ml # Voids 1 4 Laboratory Tests Test 10/09/17 05:45 White Blood Count 8.6 K/UL (4.8-10.8) Red Blood Count 4.36 M/UL (4.20-5.40) Hemoglobin 13.1 G/DL (12.0-16.0) Hematocrit 40.0 % (37.0-47.0) Mean Corpuscular Volume 92 FL (80-99) Mean Corpuscular Hemoglobin 30.0 PG (27.0-31.0) Mean Corpuscular Hemoglobin Concent 32.7 G/DL (32.0-36.0) Red Cell Distribution Width 12.6 % (11.6-14.8) Platelet Count 164 K/UL (150-450) Mean Platelet Volume 14.9 FL (6.5-10.1) H Neutrophils (%) (Auto) 48.2 % (45.0-75.0) Lymphocytes (%) (Auto) 43.4 % (20.0-45.0) Monocytes (%) (Auto) 6.2 % (1.0-10.0) Eosinophils (%) (Auto) 1.6 % (0.0-3.0) Basophils (%) (Auto) 0.8 % (0.0-2.0) Sodium Level 142 MMOL/L (136-145) Potassium Level 3.4 MMOL/L (3.5-5.1) L Chloride Level 105 MMOL/L (98-107) Carbon Dioxide Level 28 MMOL/L (21-32) Anion Gap 9 mmol/L (5-15) Blood Urea Nitrogen 9 mg/dL (7-18) Creatinine 0.8 MG/DL (0.55-1.30) Estimat Glomerular Filtration Rate mL/min (>60) Glucose Level 172 MG/DL (74-106) H Calcium Level 8.3 MG/DL (8.5-10.1) L Troponin I 0.159 ng/mL (0.000-0.056) Microbiology Date/Time Source Procedure Growth Status 10/07/17 12:05 Blood Blood Culture - Preliminary NO GROWTH AFTER 24 HOURS Resulted 10/07/17 12:05 Blood Blood Culture - Preliminary NO GROWTH AFTER 24 HOURS Resulted 10/07/17 12:05 Nasal Nares Influenza Types A,B Antigen (IDRIS) - Final Complete Objective HEAD AND NECK: Shows no JVD. LUNGS: Coarse rhonchi. CARDIOVASCULAR: Shows regular S1 and S2 with no gallop or murmur. ABDOMEN: Soft. EXTREMITIES: No pitting edema. TRINIDAD ARNOLD Oct 09, 2017 19:03
[2017-10-09 20:00] VITALS: BP 149/89
[2017-10-09] MEDS: Vancomycin 750mg/NS 250ml IVPB SCH (20:53)
[2017-10-09] MEDS: PAZEO BOTH EYES SCH (21:18)
[2017-10-10] VITALS: BP 141/75
[2017-10-10 04:00] VITALS: BP 156/78
[2017-10-10] MEDS ORDERED: Lexiscan 0.4mg/5ml syringe IV SCH (06:00)
[2017-10-10] MEDS: NovoLOG Insulin Flexpen SUBQ SCH ×4 (06:27→20:51)
[2017-10-10 07:43] LABS: BASOPHILS % (AUTO) 0.6 % (0.0-2.0); EOSINOPHILS % (AUTO) 1.6 % (0.0-3.0); HEMATOCRIT 41.2 % (37.0-47.0); HEMOGLOBIN 13.2 G/DL (12.0-16.0); LYMPHOCYTES % (AUTO) 37.1 % (20.0-45.0); MEAN CORPUSCULAR VOLUME 91 FL (80-99); MONOCYTES % (AUTO) 7.3 % (1.0-10.0); NEUTROPHILS % (AUTO) 53.5 % (45.0-75.0); PLATELET COUNT 157 K/UL (150-450); RED CELL DISTRIBUTION WIDTH 12.5 % (11.6-14.8); WHITE BLOOD COUNT 8.8 K/UL (4.8-10.8)
[2017-10-10 07:56] LABS: ANION GAP 7 mmol/L (5-15); BLOOD UREA NITROGEN 9 mg/dL (7-18); CALCIUM 8.4 MG/DL (8.5-10.1); CARBON DIOXIDE 29 MMOL/L (21-32); CHLORIDE 104 MMOL/L (98-107); CREATININE 0.9 MG/DL (0.55-1.30); POTASSIUM 3.7 MMOL/L (3.5-5.1); SODIUM 140 MMOL/L (136-145)
[2017-10-10 08:00] VITALS: BP 148/65
[2017-10-10] MEDS: PAZEO BOTH EYES SCH (09:01)
[2017-10-10] MEDS: Heparin 5000 units/ml inj SUBQ SCH ×2 (09:01→20:49)
[2017-10-10] MEDS: Metoprolol 25mg tab ORAL SCH ×2 (09:01→20:44)
[2017-10-10] MEDS: Aspirin EC 81mg tab ORAL SCH (09:01)
--- NOTE | 2017-10-10 09:12 | General Progress Note ---
Assessment/Plan Problem List: (1) Asthma ICD Codes: J45.909 - Unspecified asthma, uncomplicated SNOMED: 424000330 (2) Hypercholesteremia ICD Codes: E78.00 - Pure hypercholesterolemia, unspecified SNOMED: 26839382 (3) NSTEMI (non-ST elevated myocardial infarction) ICD Codes: I21.4 - Non-ST elevation (NSTEMI) myocardial infarction SNOMED: 356176263 (4) Bronchitis ICD Codes: J40 - Bronchitis, not specified as acute or chronic SNOMED: 95643657 (5) History of hypertension ICD Codes: Z86.79 - Personal history of other diseases of the circulatory system SNOMED: 988023696 Status: unchanged Assessment/Plan ot pt diet cardio f/u bp pain control cbc bmp am pending stress test Subjective Constitutional: Reports: weakness Allergies: Coded Allergies: No Known Allergies (Unverified , 10/07/17) All Systems: reviewed and negative except above Subjective sl chest pain sob Objective Last 24 Hour Vital Signs Date Time Temp Pulse Resp B/P (MAP) Pulse Ox O2 Delivery O2 Flow Rate FiO2 10/10/17 09:01 79 148/65 10/10/17 08:00 97.9 79 19 148/65 97 Room Air 10/10/17 04:00 61 10/10/17 04:00 98.1 67 20 156/78 95 10/10/17 00:00 98.1 66 20 141/75 96 10/09/17 20:53 75 149/89 10/09/17 20:48 74 10/09/17 20:15 144 10/09/17 20:00 70 10/09/17 20:00 97.3 75 20 149/89 95 10/09/17 19:00 72 16 Room Air 21 10/09/17 16:00 97.2 82 20 149/82 94 Room Air 10/09/17 16:00 97 10/09/17 12:00 73 10/09/17 12:00 97.3 87 20 156/98 94 Room Air Intake and Output 10/09/17 10/10/17 19:00 07:00 Intake Total 750 ml 240 ml Balance 750 ml 240 ml Intake Oral 240 ml 240 ml IV Total 510 ml # Voids 1 # Bowel Movements 2 Laboratory Tests 10/10/17 06:00: White Blood Count 8.8, Red Blood Count 4.50, Hemoglobin 13.2, Hematocrit 41.2, Mean Corpuscular Volume 91, Mean Corpuscular Hemoglobin 29.3, Mean Corpuscular Hemoglobin Concent 32.1, Red Cell Distribution Width 12.5, Platelet Count 157, Mean Platelet Volume 13.0H, Neutrophils (%) (Auto) 53.5, Lymphocytes (%) (Auto) 37.1, Monocytes (%) (Auto) 7.3, Eosinophils (%) (Auto) 1.6, Basophils (%) (Auto ) 0.6, Sodium Level 140, Potassium Level 3.7, Chloride Level 104, Carbon Dioxide Level 29, Anion Gap 7, Blood Urea Nitrogen 9, Creatinine 0.9, Estimat Glomerular Filtration Rate , Glucose Level 221H, Calcium Level 8.4L Height (Feet): 5 Height (Inches): 3.00 Weight (Pounds): 160 General Appearance: lethargic EENT: normal ENT inspection Neck: normal alignment Cardiovascular: normal peripheral pulses, normal rate, regular rhythm Respiratory/Chest: chest wall non-tender, lungs clear, normal breath sounds Abdomen: normal bowel sounds, non tender, soft Extremities: normal inspection Edema: no edema noted Arm (L), no edema noted Arm (R), no edema noted Leg (L), no edema noted Leg (R), no edema noted Pedal (L), no edema noted Pedal (R), no edema noted Generalized Neurologic: motor weakness Skin: normal pigmentation, warm/dry ROBERT LEONARDO Oct 10, 2017 09:12
[2017-10-10 12:05] VITALS: BP 142/78
--- NOTE | 2017-10-10 14:55 | Cardiac Electrophysiology PN ---
Assessment/Plan Assessment/Plan 1. Troponin leak. Five troponins are all low level and between 0.1 and 0.5. CPK and CK-MB are both normal. Continue aspirin, Lopressor 25 bid, and statin. Her ejection fraction is also within normal range of 60%. Awaiting Lexiscan Cardiolite nuclear stress test Thursday 2. Atrial fib with RVR. Converted to SR. Continue Metoprolol. 3. Hypertension.On Lopressor 4. Diabetes. 5. Shortness of breath, possible pneumonia, on Abx DW RN Subjective Subjective No chest pain or SOB. Patient has no chest pain or SOB. Awaiting stress test on Thursday Objective Last 24 Hour Vital Signs Date Time Temp Pulse Resp B/P (MAP) Pulse Ox O2 Delivery O2 Flow Rate FiO2 10/10/17 12:05 97.3 63 18 142/78 97 Room Air 10/10/17 09:54 79 16 Room Air 21 10/10/17 09:01 79 148/65 10/10/17 08:00 97.9 79 19 148/65 97 Room Air 10/10/17 07:41 74 10/10/17 04:00 61 10/10/17 04:00 98.1 67 20 156/78 95 10/10/17 00:00 98.1 66 20 141/75 96 10/09/17 20:53 75 149/89 10/09/17 20:48 74 10/09/17 20:15 144 10/09/17 20:00 70 10/09/17 20:00 97.3 75 20 149/89 95 10/09/17 19:00 72 16 Room Air 21 10/09/17 16:00 97.2 82 20 149/82 94 Room Air 10/09/17 16:00 97 Intake and Output 10/09/17 10/10/17 19:00 07:00 Intake Total 750 ml 240 ml Balance 750 ml 240 ml Intake Oral 240 ml 240 ml IV Total 510 ml # Voids 1 # Bowel Movements 2 Laboratory Tests Test 10/10/17 06:00 White Blood Count 8.8 K/UL (4.8-10.8) Red Blood Count 4.50 M/UL (4.20-5.40) Hemoglobin 13.2 G/DL (12.0-16.0) Hematocrit 41.2 % (37.0-47.0) Mean Corpuscular Volume 91 FL (80-99) Mean Corpuscular Hemoglobin 29.3 PG (27.0-31.0) Mean Corpuscular Hemoglobin Concent 32.1 G/DL (32.0-36.0) Red Cell Distribution Width 12.5 % (11.6-14.8) Platelet Count 157 K/UL (150-450) Mean Platelet Volume 13.0 FL (6.5-10.1) H Neutrophils (%) (Auto) 53.5 % (45.0-75.0) Lymphocytes (%) (Auto) 37.1 % (20.0-45.0) Monocytes (%) (Auto) 7.3 % (1.0-10.0) Eosinophils (%) (Auto) 1.6 % (0.0-3.0) Basophils (%) (Auto) 0.6 % (0.0-2.0) Sodium Level 140 MMOL/L (136-145) Potassium Level 3.7 MMOL/L (3.5-5.1) Chloride Level 104 MMOL/L (98-107) Carbon Dioxide Level 29 MMOL/L (21-32) Anion Gap 7 mmol/L (5-15) Blood Urea Nitrogen 9 mg/dL (7-18) Creatinine 0.9 MG/DL (0.55-1.30) Estimat Glomerular Filtration Rate mL/min (>60) Glucose Level 221 MG/DL (74-106) H Calcium Level 8.4 MG/DL (8.5-10.1) L Objective HEAD AND NECK: No JVD. LUNGS: Coarse rhonchi. CARDIOVASCULAR: Regular S1 and S2 with no gallop or murmur. ABDOMEN: Soft. EXTREMITIES: No pitting edema. TRINIDAD ARNOLD Oct 10, 2017 14:55
--- NOTE | 2017-10-10 15:31 | Pulmonology Progress Note ---
Assessment/Plan Assessment/Plan ASSESSMENT elevated troponin likely troponinleak possible NSTEMI Bronchitis HTN DM PLAN OF CARE Tele ASA BB statin troponin trending down Spect scan, only resting images done + Apical and anteroseptal wall resting defect, consistent with infarct stress test on Thursday ECHO with pEF 60% and RVSP of 21 DVT prophylaxis O2 HHN prn CXR negative empiric abx influenza screen negative, blood cx prel negative Lidocaine inhalation for severe cough a/tussive porn BS management with SS of insulin PT/OT case discussed and evaluated by supervising physician Subjective Allergies: Coded Allergies: No Known Allergies (Unverified , 10/07/17) Subjective no cardiac complaints, on RA pulse ox stable troponin trending down Objective Last 24 Hour Vital Signs Date Time Temp Pulse Resp B/P (MAP) Pulse Ox O2 Delivery O2 Flow Rate FiO2 10/10/17 12:05 97.3 63 18 142/78 97 Room Air 10/10/17 09:54 79 16 Room Air 21 10/10/17 09:01 79 148/65 10/10/17 08:00 97.9 79 19 148/65 97 Room Air 10/10/17 07:41 74 10/10/17 04:00 61 10/10/17 04:00 98.1 67 20 156/78 95 10/10/17 00:00 98.1 66 20 141/75 96 10/09/17 20:53 75 149/89 10/09/17 20:48 74 10/09/17 20:15 144 10/09/17 20:00 70 10/09/17 20:00 97.3 75 20 149/89 95 10/09/17 19:00 72 16 Room Air 21 10/09/17 16:00 97.2 82 20 149/82 94 Room Air 10/09/17 16:00 97 Intake and Output 10/09/17 10/10/17 19:00 07:00 Intake Total 750 ml 240 ml Balance 750 ml 240 ml Intake Oral 240 ml 240 ml IV Total 510 ml # Voids 1 # Bowel Movements 2 General Appearance: no acute distress HEENT: normocephalic, atraumatic, anicteric, mucous membranes moist Respiratory/Chest: lungs clear, no respiratory distress, no accessory muscle use Cardiovascular: normal peripheral pulses, normal rate, regular rhythm - SR on tele, no JVD Abdomen: normal bowel sounds, soft, non tender Extremities: no edema, pedal pulses normal Neurologic/Psychiatric: alert, responsive Laboratory Tests 10/10/17 06:00: White Blood Count 8.8, Red Blood Count 4.50, Hemoglobin 13.2, Hematocrit 41.2, Mean Corpuscular Volume 91, Mean Corpuscular Hemoglobin 29.3, Mean Corpuscular Hemoglobin Concent 32.1, Red Cell Distribution Width 12.5, Platelet Count 157, Mean Platelet Volume 13.0H, Neutrophils (%) (Auto) 53.5, Lymphocytes (%) (Auto) 37.1, Monocytes (%) (Auto) 7.3, Eosinophils (%) (Auto) 1.6, Basophils (%) (Auto ) 0.6, Sodium Level 140, Potassium Level 3.7, Chloride Level 104, Carbon Dioxide Level 29, Anion Gap 7, Blood Urea Nitrogen 9, Creatinine 0.9, Estimat Glomerular Filtration Rate , Glucose Level 221H, Calcium Level 8.4L Current Medications Medications (Trade) Dose Ordered Sig/Hair Route PRN Reason Start Time Stop Time Status Last Admin Dose Admin Acetaminophen (Tylenol) 650 mg Q4H PRN ORAL Mild Pain/Temp > 100.5 10/09/17 11:45 11/08/17 11:44 10/09/17 10:25 Albuterol/ Ipratropium (Albuterol/ Ipratropium) 3 ml Q4H PRN HHN Shortness of Breath 10/07/17 15:45 10/12/17 15:44 Aspirin (Ecotrin) 81 mg DAILY ORAL 10/08/17 09:00 11/07/17 08:59 10/10/17 09:01 Atorvastatin Calcium (Lipitor) 10 mg BEDTIME ORAL 10/07/17 21:00 11/06/17 20:59 10/09/17 20:53 Cefepime HCl 2 gm/ Sodium Chloride 110 ml @ 220 mls/hr DAILY@1800 IV 10/07/17 18:00 10/14/17 17:59 10/09/17 17:58 Dextrose (Dextrose 50%) STAT PRN IV Hypoglycemia 10/07/17 15:45 11/06/17 15:44 Heparin Sodium (Porcine) (Heparin 5000 units/ml) 5,000 units EVERY 12 HOURS SUBQ 10/07/17 21:00 11/06/17 20:59 10/10/17 09:01 Insulin Aspart (NovoLOG) BEFORE MEALS AND HS SUBQ 10/07/17 18:30 11/06/17 18:29 10/10/17 12:20 Lidocaine (Xylocaine 1% MPF 5ml) 10 ml EVERY 4 HOURS PRN HHN cough 10/09/17 15:45 11/08/17 15:44 Lorazepam (Ativan 2mg/ml 1ml) 2 mg Q2H PRN IV For Anxiety 10/07/17 15:45 10/14/17 15:44 Metoprolol Tartrate (Lopressor) 25 mg Q12HR ORAL 10/07/17 21:00 11/06/17 20:59 10/10/17 09:01 Morphine Sulfate (Morphine Sulfate) 4 mg Q4H PRN IVP Severe Pain (Pain Scale 7-10) 10/07/17 15:45 10/14/17 15:44 Ondansetron HCl (Zofran) 4 mg Q6H PRN IVP Nausea & Vomiting 10/07/17 15:45 11/06/17 15:44 Patient Own Medication (Patient's Own Med) 1 ea DAILY BOTH EYES 10/09/17 20:00 11/08/17 19:59 10/10/17 09:01 Polyethylene Glycol (Miralax) 17 gm DAILYPRN PRN ORAL Constipation 10/07/17 15:45 11/06/17 15:44 Promethazine HCl/ Codeine (Phenergan with Codeine) 5 ml Q4H PRN ORAL For Cough 10/07/17 15:45 11/06/17 15:44 Regadenoson (Lexiscan) 0.4 mg ONCE IV 10/10/17 06:00 10/10/17 23:59 Vancomycin HCl (Vanco rx to dose) 1 ea DAILY PRN MISC PER RX PROTOCOL 10/07/17 17:00 11/06/17 16:59 Vancomycin/Sodium Chloride 250 ml @ 166.667 mls/hr Q24H IVPB 10/08/17 20:00 10/13/17 19:59 10/09/17 20:53 Myranda Richardson NP ([facility]) Oct 10, 2017 15:31
[2017-10-10] MEDS ORDERED: Albuterol/Ipratropium 3ml neb HHN PRN (15:45)
[2017-10-10 16:00] VITALS: BP 135/69
[2017-10-10] MEDS: Cefepime HCl 2 GM in NS 110 ML IV SCH (17:25)
[2017-10-10 20:00] VITALS: BP 148/76
[2017-10-10] MEDS: Vancomycin 1250mg/D5W 250ml IVPB SCH (22:09)
[2017-10-11] VITALS: BP 139/85
[2017-10-11 04:00] VITALS: BP 137/64
[2017-10-11] MEDS: NovoLOG Insulin Flexpen SUBQ SCH ×4 (06:35→22:39)
[2017-10-11 08:00] VITALS: BP 148/85
--- NOTE | 2017-10-11 08:31 | General Progress Note ---
Assessment/Plan Problem List: (1) Asthma ICD Codes: J45.909 - Unspecified asthma, uncomplicated SNOMED: 625582756 (2) Hypercholesteremia ICD Codes: E78.00 - Pure hypercholesterolemia, unspecified SNOMED: 00295644 (3) NSTEMI (non-ST elevated myocardial infarction) ICD Codes: I21.4 - Non-ST elevation (NSTEMI) myocardial infarction SNOMED: 162541608 (4) Bronchitis ICD Codes: J40 - Bronchitis, not specified as acute or chronic SNOMED: 64700984 (5) History of hypertension ICD Codes: Z86.79 - Personal history of other diseases of the circulatory system SNOMED: 369311511 Status: stable, progressing, tolerating diet Assessment/Plan ot pt diet cardio f/u bp pain control cbc bmp am pending stress test Subjective Constitutional: Reports: weakness Allergies: Coded Allergies: No Known Allergies (Unverified , 10/07/17) All Systems: reviewed and negative except above Subjective sl chest pain sob Objective Last 24 Hour Vital Signs Date Time Temp Pulse Resp B/P (MAP) Pulse Ox O2 Delivery O2 Flow Rate FiO2 10/11/17 04:00 76 10/11/17 04:00 98.2 79 20 137/64 95 Room Air 10/11/17 00:00 60 10/11/17 00:00 97.7 59 20 139/85 95 Room Air 10/10/17 20:44 64 135/69 10/10/17 20:00 98.1 65 20 148/76 94 Room Air 10/10/17 20:00 71 10/10/17 19:31 64 19 Room Air 21 10/10/17 17:00 74 10/10/17 16:00 97.9 69 19 135/69 98 Room Air 10/10/17 12:05 97.3 63 18 142/78 97 Room Air 10/10/17 12:02 61 10/10/17 09:54 79 16 Room Air 21 10/10/17 09:01 79 148/65 Intake and Output 10/10/17 10/11/17 19:00 07:00 Intake Total 346 ml 450.000 ml Balance 346 ml 450.000 ml Intake Oral 236 ml 200 ml IV Total 110 ml 250.000 ml # Voids 1 1 Laboratory Tests 10/10/17 19:30: Vancomycin Level Trough 6.9 Height (Feet): 5 Height (Inches): 3.00 Weight (Pounds): 160 General Appearance: lethargic EENT: normal ENT inspection Neck: normal alignment Cardiovascular: normal peripheral pulses, normal rate, regular rhythm Respiratory/Chest: chest wall non-tender, lungs clear, normal breath sounds Abdomen: normal bowel sounds, non tender, soft Extremities: normal inspection Edema: no edema noted Arm (L), no edema noted Arm (R), no edema noted Leg (L), no edema noted Leg (R), no edema noted Pedal (L), no edema noted Pedal (R), no edema noted Generalized Neurologic: responsive, motor weakness Skin: normal pigmentation, warm/dry ROBERT LEONARDO Oct 11, 2017 08:31
[2017-10-11 09:08] LABS: BASOPHILS % (AUTO) 0.6 % (0.0-2.0); EOSINOPHILS % (AUTO) 2.6 % (0.0-3.0); HEMATOCRIT 41.7 % (37.0-47.0); HEMOGLOBIN 13.3 G/DL (12.0-16.0); LYMPHOCYTES % (AUTO) 35.6 % (20.0-45.0); MEAN CORPUSCULAR VOLUME 92 FL (80-99); MONOCYTES % (AUTO) 7.6 % (1.0-10.0); NEUTROPHILS % (AUTO) 53.5 % (45.0-75.0); PLATELET COUNT 151 K/UL (150-450); RED BLOOD COUNT 4.55 M/UL (4.20-5.40); RED CELL DISTRIBUTION WIDTH 12.4 % (11.6-14.8); WHITE BLOOD COUNT 8.6 K/UL (4.8-10.8)
[2017-10-11] MEDS: PAZEO BOTH EYES SCH (09:18)
[2017-10-11] MEDS: Aspirin EC 81mg tab ORAL SCH (09:18)
[2017-10-11] MEDS: Metoprolol 25mg tab ORAL SCH ×2 (09:19→22:32)
[2017-10-11 09:22] LABS: ANION GAP 8 mmol/L (5-15); BLOOD UREA NITROGEN 12 mg/dL (7-18); CALCIUM 8.2 MG/DL (8.5-10.1); CARBON DIOXIDE 29 MMOL/L (21-32); CHLORIDE 103 MMOL/L (98-107); POTASSIUM 3.5 MMOL/L (3.5-5.1); SODIUM 139 MMOL/L (136-145)
[2017-10-11] MEDS: Heparin 5000 units/ml inj SUBQ SCH ×2 (09:22→22:33)
[2017-10-11 12:00] VITALS: BP 150/73
--- NOTE | 2017-10-11 14:50 | Pulmonology Progress Note ---
Assessment/Plan Assessment/Plan ASSESSMENT elevated troponin likely troponin leak possible NSTEMI Bronchitis HTN DM PLAN OF CARE Tele ASA BB statin troponin trending down discussed with cardio dr Tucker Spect scan, only resting images done + Apical and anteroseptal wall resting defect, consistent with infarct stress test on Thursday ECHO with pEF 60% and RVSP of 21 DVT prophylaxis O2 HHN prn CXR negative empiric abx influenza screen negative, blood cx prel negative Lidocaine inhalation for severe cough a/tussive porn BS management with SS of insulin PT/OT case discussed and evaluated by supervising physician Subjective Allergies: Coded Allergies: No Known Allergies (Unverified , 10/07/17) Subjective no cardiac complaints, on RA pulse ox stable troponin trending down Objective Last 24 Hour Vital Signs Date Time Temp Pulse Resp B/P (MAP) Pulse Ox O2 Delivery O2 Flow Rate FiO2 10/11/17 12:00 97.8 72 19 150/73 96 Room Air 10/11/17 11:35 65 10/11/17 09:40 85 20 Room Air 21 10/11/17 09:19 76 148/85 10/11/17 08:00 98.2 76 18 148/85 95 Room Air 10/11/17 07:44 78 10/11/17 04:00 76 10/11/17 04:00 98.2 79 20 137/64 95 Room Air 10/11/17 00:00 60 10/11/17 00:00 97.7 59 20 139/85 95 Room Air 10/10/17 20:44 64 135/69 10/10/17 20:00 98.1 65 20 148/76 94 Room Air 10/10/17 20:00 71 10/10/17 19:31 64 19 Room Air 21 10/10/17 17:00 74 10/10/17 16:00 97.9 69 19 135/69 98 Room Air Intake and Output 10/10/17 10/11/17 19:00 07:00 Intake Total 346 ml 450.000 ml Balance 346 ml 450.000 ml Intake Oral 236 ml 200 ml IV Total 110 ml 250.000 ml # Voids 1 1 Objective General Appearance: no acute distress HEENT: normocephalic, atraumatic, anicteric, mucous membranes moist Respiratory/Chest: lungs clear, no respiratory distress, no accessory muscle use Cardiovascular: normal peripheral pulses, normal rate, regular rhythm - SR on tele, no JVD Abdomen: normal bowel sounds, soft, non tender Extremities: no edema, pedal pulses normal Neurologic/Psychiatric: alert, responsive Laboratory Tests 10/10/17 19:30: Vancomycin Level Trough 6.9 10/11/17 07:25: White Blood Count 8.6, Red Blood Count 4.55, Hemoglobin 13.3, Hematocrit 41.7, Mean Corpuscular Volume 92, Mean Corpuscular Hemoglobin 29.3, Mean Corpuscular Hemoglobin Concent 31.9L, Red Cell Distribution Width 12.4, Platelet Count 151, Mean Platelet Volume 12.4H, Neutrophils (%) (Auto) 53.5, Lymphocytes (%) (Auto) 35.6, Monocytes (%) (Auto) 7.6, Eosinophils (%) (Auto) 2.6, Basophils (%) (Auto ) 0.6, Sodium Level 139, Potassium Level 3.5, Chloride Level 103, Carbon Dioxide Level 29, Anion Gap 8, Blood Urea Nitrogen 12, Creatinine 1.0, Estimat Glomerular Filtration Rate , Glucose Level 258H, Calcium Level 8.2L Current Medications Medications (Trade) Dose Ordered Sig/Hair Route PRN Reason Start Time Stop Time Status Last Admin Dose Admin Acetaminophen (Tylenol) 650 mg Q4H PRN ORAL Mild Pain/Temp > 100.5 10/09/17 11:45 11/08/17 11:44 10/09/17 10:25 Albuterol/ Ipratropium (Albuterol/ Ipratropium) 3 ml Q4H PRN HHN Shortness of Breath 10/10/17 15:45 10/15/17 15:44 Aspirin (Ecotrin) 81 mg DAILY ORAL 10/08/17 09:00 11/07/17 08:59 10/11/17 09:18 Atorvastatin Calcium (Lipitor) 10 mg BEDTIME ORAL 10/07/17 21:00 11/06/17 20:59 10/10/17 20:46 Cefepime HCl 2 gm/ Sodium Chloride 110 ml @ 220 mls/hr DAILY@1800 IV 10/07/17 18:00 10/14/17 17:59 10/10/17 17:25 Dextrose (Dextrose 50%) STAT PRN IV Hypoglycemia 10/07/17 15:45 11/06/17 15:44 Heparin Sodium (Porcine) (Heparin 5000 units/ml) 5,000 units EVERY 12 HOURS SUBQ 10/07/17 21:00 11/06/17 20:59 10/11/17 09:22 Insulin Aspart (NovoLOG) BEFORE MEALS AND HS SUBQ 10/07/17 18:30 11/06/17 18:29 10/11/17 12:44 Lidocaine (Xylocaine 1% MPF 5ml) 10 ml EVERY 4 HOURS PRN HHN cough 10/09/17 15:45 11/08/17 15:44 Lorazepam (Ativan 2mg/ml 1ml) 2 mg Q2H PRN IV For Anxiety 10/07/17 15:45 10/14/17 15:44 Metoprolol Tartrate (Lopressor) 25 mg Q12HR ORAL 10/07/17 21:00 11/06/17 20:59 10/11/17 09:19 Morphine Sulfate (Morphine Sulfate) 4 mg Q4H PRN IVP Severe Pain (Pain Scale 7-10) 10/07/17 15:45 10/14/17 15:44 Ondansetron HCl (Zofran) 4 mg Q6H PRN IVP Nausea & Vomiting 10/07/17 15:45 11/06/17 15:44 Patient Own Medication (Patient's Own Med) 1 ea DAILY BOTH EYES 10/09/17 20:00 11/08/17 19:59 10/11/17 09:18 Polyethylene Glycol (Miralax) 17 gm DAILYPRN PRN ORAL Constipation 10/07/17 15:45 11/06/17 15:44 Promethazine HCl/ Codeine (Phenergan with Codeine) 5 ml Q4H PRN ORAL For Cough 10/07/17 15:45 11/06/17 15:44 Vancomycin HCl (Vanco rx to dose) 1 ea DAILY PRN MISC PER RX PROTOCOL 10/07/17 17:00 11/06/17 16:59 Vancomycin HCl/ Dextrose 250 ml @ 166.667 mls/hr Q24H IVPB 10/10/17 22:00 10/15/17 21:59 10/10/17 22:09 Myranda Richardson NP ([facility]) Oct 11, 2017 14:50
--- NOTE | 2017-10-11 15:35 | Cardiac Electrophysiology PN ---
Assessment/Plan Assessment/Plan 1. Troponin leak. Five troponins are all low level and between 0.1 and 0.5. CPK and CK-MB are both normal. Continue aspirin, Lopressor 25 bid, and statin. Her ejection fraction is also within normal range of 60%. Awaiting Lexiscan Cardiolite nuclear stress test tomorrow 2. Atrial fib with RVR. Converted to SR. Continue Metoprolol. 3. Hypertension.On Lopressor 4. Diabetes. 5. Shortness of breath, possible pneumonia, on Abx DW RN Subjective Subjective No chest pain or SOB . Awaiting stress test on Thursday. No events Objective Last 24 Hour Vital Signs Date Time Temp Pulse Resp B/P (MAP) Pulse Ox O2 Delivery O2 Flow Rate FiO2 10/11/17 12:00 97.8 72 19 150/73 96 Room Air 10/11/17 11:35 65 10/11/17 09:40 85 20 Room Air 21 10/11/17 09:19 76 148/85 10/11/17 08:00 98.2 76 18 148/85 95 Room Air 10/11/17 07:44 78 10/11/17 04:00 76 10/11/17 04:00 98.2 79 20 137/64 95 Room Air 10/11/17 00:00 60 10/11/17 00:00 97.7 59 20 139/85 95 Room Air 10/10/17 20:44 64 135/69 10/10/17 20:00 98.1 65 20 148/76 94 Room Air 10/10/17 20:00 71 10/10/17 19:31 64 19 Room Air 21 10/10/17 17:00 74 10/10/17 16:00 97.9 69 19 135/69 98 Room Air Intake and Output 10/10/17 10/11/17 19:00 07:00 Intake Total 346 ml 450.000 ml Balance 346 ml 450.000 ml Intake Oral 236 ml 200 ml IV Total 110 ml 250.000 ml # Voids 1 1 Laboratory Tests Test 10/10/17 19:30 10/11/17 07:25 Vancomycin Level Trough 6.9 ug/mL (5.0-12.0) White Blood Count 8.6 K/UL (4.8-10.8) Red Blood Count 4.55 M/UL (4.20-5.40) Hemoglobin 13.3 G/DL (12.0-16.0) Hematocrit 41.7 % (37.0-47.0) Mean Corpuscular Volume 92 FL (80-99) Mean Corpuscular Hemoglobin 29.3 PG (27.0-31.0) Mean Corpuscular Hemoglobin Concent 31.9 G/DL (32.0-36.0) L Red Cell Distribution Width 12.4 % (11.6-14.8) Platelet Count 151 K/UL (150-450) Mean Platelet Volume 12.4 FL (6.5-10.1) H Neutrophils (%) (Auto) 53.5 % (45.0-75.0) Lymphocytes (%) (Auto) 35.6 % (20.0-45.0) Monocytes (%) (Auto) 7.6 % (1.0-10.0) Eosinophils (%) (Auto) 2.6 % (0.0-3.0) Basophils (%) (Auto) 0.6 % (0.0-2.0) Sodium Level 139 MMOL/L (136-145) Potassium Level 3.5 MMOL/L (3.5-5.1) Chloride Level 103 MMOL/L (98-107) Carbon Dioxide Level 29 MMOL/L (21-32) Anion Gap 8 mmol/L (5-15) Blood Urea Nitrogen 12 mg/dL (7-18) Creatinine 1.0 MG/DL (0.55-1.30) Estimat Glomerular Filtration Rate mL/min (>60) Glucose Level 258 MG/DL (74-106) H Calcium Level 8.2 MG/DL (8.5-10.1) L Objective HEAD AND NECK: No JVD. LUNGS: Coarse rhonchi. CARDIOVASCULAR: Regular S1 and S2 with no gallop or murmur. ABDOMEN: Soft. EXTREMITIES: No pitting edema. TRINIDAD ARNOLD Oct 11, 2017 15:35
[2017-10-11 16:00] VITALS: BP 137/71
[2017-10-11] MEDS: Cefepime HCl 2 GM in NS 110 ML IV SCH (17:17)
[2017-10-11 20:00] VITALS: BP 152/79
[2017-10-11] MEDS: Vancomycin 1250mg/D5W 250ml IVPB SCH (22:00)
[2017-10-12] VITALS: BP 143/74
[2017-10-12 04:00] VITALS: BP 134/73
[2017-10-12] MEDS: NovoLOG Insulin Flexpen SUBQ SCH ×4 (06:50→23:02)
[2017-10-12 07:34] LABS: ANION GAP 10 mmol/L (5-15); BLOOD UREA NITROGEN 10 mg/dL (7-18); CALCIUM 8.3 MG/DL (8.5-10.1); CARBON DIOXIDE 27 MMOL/L (21-32); CHLORIDE 104 MMOL/L (98-107); POTASSIUM 3.3 MMOL/L (3.5-5.1); SODIUM 141 MMOL/L (136-145)
[2017-10-12 07:42] LABS: BASOPHILS % (AUTO) 0.5 % (0.0-2.0); EOSINOPHILS % (AUTO) 2.7 % (0.0-3.0); HEMATOCRIT 41.8 % (37.0-47.0); HEMOGLOBIN 13.6 G/DL (12.0-16.0); LYMPHOCYTES % (AUTO) 37.7 % (20.0-45.0); MEAN CORPUSCULAR VOLUME 91 FL (80-99); MONOCYTES % (AUTO) 7.6 % (1.0-10.0); NEUTROPHILS % (AUTO) 51.5 % (45.0-75.0); PLATELET COUNT 167 K/UL (150-450); RED BLOOD COUNT 4.57 M/UL (4.20-5.40); RED CELL DISTRIBUTION WIDTH 12.4 % (11.6-14.8); WHITE BLOOD COUNT 8.9 K/UL (4.8-10.8)
[2017-10-12 08:00] VITALS: BP 130/67
[2017-10-12] MEDS: Heparin 5000 units/ml inj SUBQ SCH ×2 (09:00→22:53)
[2017-10-12] MEDS: PAZEO BOTH EYES SCH (09:00)
[2017-10-12] MEDS: Metoprolol 25mg tab ORAL SCH ×2 (09:00→22:51)
[2017-10-12] MEDS: Aspirin EC 81mg tab ORAL SCH (09:00)
[2017-10-12 12:08] VITALS: BP 127/68
--- NOTE | 2017-10-12 12:36 | Pulmonology Progress Note ---
Assessment/Plan Problems: (1) Bronchitis (2) NSTEMI (non-ST elevated myocardial infarction) (3) History of hypertension Assessment/Plan feeling much better stress test done Findings: Resting SPECT images demonstrate a perfusion defect in the anteroseptal wall extending into the apex. Impression: Apical and anteroseptal wall resting defect, consistent with infarct awaiting cardiology recommendations dc planning if ok with cardiology Subjective ROS Limited/Unobtainable: No Constitutional: Reports: no symptoms HEENT: Repors: no symptoms Allergies: Coded Allergies: No Known Allergies (Unverified , 10/07/17) Objective Last 24 Hour Vital Signs Date Time Temp Pulse Resp B/P (MAP) Pulse Ox O2 Delivery O2 Flow Rate FiO2 10/12/17 12:08 98.3 70 18 127/68 Room Air 70 10/12/17 10:54 77 10/12/17 08:00 97.7 79 18 130/67 96 Room Air 79 10/12/17 07:15 87 20 Room Air 21 10/12/17 04:00 98.1 66 20 134/73 92 Room Air 66 10/12/17 04:00 69 10/12/17 00:00 97.5 60 20 143/74 95 Room Air 10/12/17 00:00 58 10/11/17 22:32 71 152/79 10/11/17 20:00 67 10/11/17 20:00 97.7 71 21 152/79 96 Room Air 10/11/17 19:00 96 20 Room Air 21 10/11/17 17:05 63 10/11/17 16:00 97.8 76 19 137/71 98 Room Air Intake and Output 10/11/17 10/12/17 19:00 07:00 Intake Total 708 ml Output Total 0 ml Balance 708 ml 0 ml Intake Oral 708 ml Output Urine Total 0 ml # Voids 3 General Appearance: WD/WN HEENT: normocephalic, atraumatic Respiratory/Chest: chest wall non-tender, lungs clear Breasts: no masses Cardiovascular: normal peripheral pulses, normal rate Abdomen: normal bowel sounds, soft, non tender Skin: no rash 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 Lymphatic: no neck adenopathy Laboratory Tests 10/12/17 06:25: White Blood Count 8.9, Red Blood Count 4.57, Hemoglobin 13.6, Hematocrit 41.8, Mean Corpuscular Volume 91, Mean Corpuscular Hemoglobin 29.8, Mean Corpuscular Hemoglobin Concent 32.6, Red Cell Distribution Width 12.4, Platelet Count 167, Mean Platelet Volume 13.8H, Neutrophils (%) (Auto) 51.5, Lymphocytes (%) (Auto) 37.7, Monocytes (%) (Auto) 7.6, Eosinophils (%) (Auto) 2.7, Basophils (%) (Auto ) 0.5, Sodium Level 141, Potassium Level 3.3L, Chloride Level 104, Carbon Dioxide Level 27, Anion Gap 10, Blood Urea Nitrogen 10, Creatinine 1.0, Estimat Glomerular Filtration Rate , Glucose Level 189H, Calcium Level 8.3L Current Medications Medications (Trade) Dose Ordered Sig/Hair Route PRN Reason Start Time Stop Time Status Last Admin Dose Admin Acetaminophen (Tylenol) 650 mg Q4H PRN ORAL Mild Pain/Temp > 100.5 10/09/17 11:45 11/08/17 11:44 10/09/17 10:25 Albuterol/ Ipratropium (Albuterol/ Ipratropium) 3 ml Q4H PRN HHN Shortness of Breath 10/10/17 15:45 10/15/17 15:44 Aspirin (Ecotrin) 81 mg DAILY ORAL 10/08/17 09:00 11/07/17 08:59 10/11/17 09:18 Atorvastatin Calcium (Lipitor) 10 mg BEDTIME ORAL 10/07/17 21:00 11/06/17 20:59 10/11/17 22:30 Cefepime HCl 2 gm/ Sodium Chloride 110 ml @ 220 mls/hr DAILY@1800 IV 10/07/17 18:00 10/14/17 17:59 10/11/17 17:17 Dextrose (Dextrose 50%) STAT PRN IV Hypoglycemia 10/07/17 15:45 11/06/17 15:44 Heparin Sodium (Porcine) (Heparin 5000 units/ml) 5,000 units EVERY 12 HOURS SUBQ 10/07/17 21:00 11/06/17 20:59 10/11/17 22:33 Insulin Aspart (NovoLOG) BEFORE MEALS AND HS SUBQ 10/07/17 18:30 11/06/17 18:29 10/12/17 06:50 Lidocaine (Xylocaine 1% MPF 5ml) 10 ml EVERY 4 HOURS PRN HHN cough 10/09/17 15:45 11/08/17 15:44 Lorazepam (Ativan 2mg/ml 1ml) 2 mg Q2H PRN IV For Anxiety 10/07/17 15:45 10/14/17 15:44 Metoprolol Tartrate (Lopressor) 25 mg Q12HR ORAL 10/07/17 21:00 11/06/17 20:59 10/11/17 22:32 Morphine Sulfate (Morphine Sulfate) 4 mg Q4H PRN IVP Severe Pain (Pain Scale 7-10) 10/07/17 15:45 10/14/17 15:44 Ondansetron HCl (Zofran) 4 mg Q6H PRN IVP Nausea & Vomiting 10/07/17 15:45 11/06/17 15:44 Patient Own Medication (Patient's Own Med) 1 ea DAILY BOTH EYES 10/09/17 20:00 11/08/17 19:59 10/11/17 09:18 Polyethylene Glycol (Miralax) 17 gm DAILYPRN PRN ORAL Constipation 10/07/17 15:45 11/06/17 15:44 Promethazine HCl/ Codeine (Phenergan with Codeine) 5 ml Q4H PRN ORAL For Cough 10/07/17 15:45 11/06/17 15:44 Vancomycin HCl (Vanco rx to dose) 1 ea DAILY PRN MISC PER RX PROTOCOL 10/07/17 17:00 11/06/17 16:59 Vancomycin HCl/ Dextrose 250 ml @ 166.667 mls/hr Q24H IVPB 10/10/17 22:00 10/15/17 21:59 10/11/17 22:00 JEFFREY FERGUSON Oct 12, 2017 12:36
--- NOTE | 2017-10-12 13:00 | Cardiac Electrophysiology PN ---
Assessment/Plan Assessment/Plan 1. Troponin leak. Five troponins are all low level and between 0.1 and 0.5. CPK and CK-MB are both normal. Continue aspirin, Lopressor 25 bid, and statin. Her ejection fraction is also within normal range of 60%. Awaiting Lexiscan Cardiolite nuclear stress test today by Dr Gonzalez 2. Atrial fib with RVR. Converted to SR. Continue Metoprolol. 3. Hypertension.On Lopressor 4. Diabetes. 5. Shortness of breath, possible pneumonia, on Abx DW RN Subjective Subjective No chest pain or SOB .Stress test today pending. No events Objective Last 24 Hour Vital Signs Date Time Temp Pulse Resp B/P (MAP) Pulse Ox O2 Delivery O2 Flow Rate FiO2 10/12/17 12:08 98.3 70 18 127/68 Room Air 70 10/12/17 10:54 77 10/12/17 08:00 97.7 79 18 130/67 96 Room Air 79 10/12/17 07:15 87 20 Room Air 21 10/12/17 04:00 98.1 66 20 134/73 92 Room Air 66 10/12/17 04:00 69 10/12/17 00:00 97.5 60 20 143/74 95 Room Air 10/12/17 00:00 58 10/11/17 22:32 71 152/79 10/11/17 20:00 67 10/11/17 20:00 97.7 71 21 152/79 96 Room Air 10/11/17 19:00 96 20 Room Air 21 10/11/17 17:05 63 10/11/17 16:00 97.8 76 19 137/71 98 Room Air Intake and Output 10/11/17 10/12/17 19:00 07:00 Intake Total 708 ml Output Total 0 ml Balance 708 ml 0 ml Intake Oral 708 ml Output Urine Total 0 ml # Voids 3 Laboratory Tests Test 10/12/17 06:25 White Blood Count 8.9 K/UL (4.8-10.8) Red Blood Count 4.57 M/UL (4.20-5.40) Hemoglobin 13.6 G/DL (12.0-16.0) Hematocrit 41.8 % (37.0-47.0) Mean Corpuscular Volume 91 FL (80-99) Mean Corpuscular Hemoglobin 29.8 PG (27.0-31.0) Mean Corpuscular Hemoglobin Concent 32.6 G/DL (32.0-36.0) Red Cell Distribution Width 12.4 % (11.6-14.8) Platelet Count 167 K/UL (150-450) Mean Platelet Volume 13.8 FL (6.5-10.1) H Neutrophils (%) (Auto) 51.5 % (45.0-75.0) Lymphocytes (%) (Auto) 37.7 % (20.0-45.0) Monocytes (%) (Auto) 7.6 % (1.0-10.0) Eosinophils (%) (Auto) 2.7 % (0.0-3.0) Basophils (%) (Auto) 0.5 % (0.0-2.0) Sodium Level 141 MMOL/L (136-145) Potassium Level 3.3 MMOL/L (3.5-5.1) L Chloride Level 104 MMOL/L (98-107) Carbon Dioxide Level 27 MMOL/L (21-32) Anion Gap 10 mmol/L (5-15) Blood Urea Nitrogen 10 mg/dL (7-18) Creatinine 1.0 MG/DL (0.55-1.30) Estimat Glomerular Filtration Rate mL/min (>60) Glucose Level 189 MG/DL (74-106) H Calcium Level 8.3 MG/DL (8.5-10.1) L Objective HEAD AND NECK: No JVD. LUNGS: Coarse rhonchi. CARDIOVASCULAR: Regular S1 and S2 with no gallop or murmur. ABDOMEN: Soft. EXTREMITIES: No pitting edema. TRINIDAD ARNOLD Oct 12, 2017 13:00
--- NOTE | 2017-10-12 14:39 | General Progress Note ---
Assessment/Plan Problem List: (1) Asthma ICD Codes: J45.909 - Unspecified asthma, uncomplicated SNOMED: 853265182 (2) Hypercholesteremia ICD Codes: E78.00 - Pure hypercholesterolemia, unspecified SNOMED: 22655100 (3) NSTEMI (non-ST elevated myocardial infarction) ICD Codes: I21.4 - Non-ST elevation (NSTEMI) myocardial infarction SNOMED: 847219070 (4) Bronchitis ICD Codes: J40 - Bronchitis, not specified as acute or chronic SNOMED: 74808143 (5) History of hypertension ICD Codes: Z86.79 - Personal history of other diseases of the circulatory system SNOMED: 038485045 Status: stable, progressing, tolerating diet Assessment/Plan ot pt diet cardio f/u bp pain control cbc bmp am pending stress test Subjective Constitutional: Reports: weakness Allergies: Coded Allergies: No Known Allergies (Unverified , 10/07/17) All Systems: reviewed and negative except above Subjective sl chest pain sob Objective Last 24 Hour Vital Signs Date Time Temp Pulse Resp B/P (MAP) Pulse Ox O2 Delivery O2 Flow Rate FiO2 10/12/17 12:08 98.3 70 18 127/68 Room Air 70 10/12/17 10:54 77 10/12/17 08:00 97.7 79 18 130/67 96 Room Air 79 10/12/17 07:15 87 20 Room Air 21 10/12/17 04:00 98.1 66 20 134/73 92 Room Air 66 10/12/17 04:00 69 10/12/17 00:00 97.5 60 20 143/74 95 Room Air 10/12/17 00:00 58 10/11/17 22:32 71 152/79 10/11/17 20:00 67 10/11/17 20:00 97.7 71 21 152/79 96 Room Air 10/11/17 19:00 96 20 Room Air 21 10/11/17 17:05 63 10/11/17 16:00 97.8 76 19 137/71 98 Room Air Intake and Output 10/11/17 10/12/17 19:00 07:00 Intake Total 708 ml Output Total 0 ml Balance 708 ml 0 ml Intake Oral 708 ml Output Urine Total 0 ml # Voids 3 Laboratory Tests 10/12/17 06:25: White Blood Count 8.9, Red Blood Count 4.57, Hemoglobin 13.6, Hematocrit 41.8, Mean Corpuscular Volume 91, Mean Corpuscular Hemoglobin 29.8, Mean Corpuscular Hemoglobin Concent 32.6, Red Cell Distribution Width 12.4, Platelet Count 167, Mean Platelet Volume 13.8H, Neutrophils (%) (Auto) 51.5, Lymphocytes (%) (Auto) 37.7, Monocytes (%) (Auto) 7.6, Eosinophils (%) (Auto) 2.7, Basophils (%) (Auto ) 0.5, Sodium Level 141, Potassium Level 3.3L, Chloride Level 104, Carbon Dioxide Level 27, Anion Gap 10, Blood Urea Nitrogen 10, Creatinine 1.0, Estimat Glomerular Filtration Rate , Glucose Level 189H, Calcium Level 8.3L Height (Feet): 5 Height (Inches): 3.00 Weight (Pounds): 160 General Appearance: alert EENT: normal ENT inspection Neck: normal alignment Cardiovascular: normal peripheral pulses, normal rate, regular rhythm Respiratory/Chest: chest wall non-tender, lungs clear, normal breath sounds Abdomen: normal bowel sounds, non tender, soft Extremities: normal inspection Edema: no edema noted Arm (L), no edema noted Arm (R), no edema noted Leg (L), no edema noted Leg (R), no edema noted Pedal (L), no edema noted Pedal (R), no edema noted Generalized Neurologic: responsive, motor weakness Skin: normal pigmentation, warm/dry ROBERT LEONARDO Oct 12, 2017 14:39
[2017-10-12 16:00] VITALS: BP 130/72
[2017-10-12] MEDS: Cefepime HCl 2 GM in NS 110 ML IV SCH (17:24)
[2017-10-12 20:00] VITALS: BP 150/63
--- NOTE | 2017-10-12 21:49 | Diagnostic Imaging Report ---
Indication: chest pain Technique: The study was conducted under the supervision of a scientific informatics leader. lexiscan (regadenoson) infusion over 10 seconds followed by intravenous administration of 31.6 mCi of technetium 99m Myoview was performed. Three plane SPECT imaging of the heart was then performed. A resting study was performed as part of the one-day protocol with 9.9 mCi of technetium 99m myoview injected intravenously at that time. Three plane SPECT imaging of the heart was obtained. Comparison: None Clinical data: 1. Clinical response: Non ischemic 2. Electrocardiographic response: Non ischemic Findings: The myocardial perfusion scan demonstrates no fixed or reversible perfusion defects. LVEF estimated at 89% which is likely overestimated. IMPRESSION: Negative myocardial perfusion scan
[2017-10-12] MEDS: Vancomycin 1250mg/D5W 250ml IVPB SCH (23:03)
[2017-10-13] VITALS: BP 145/71
[2017-10-13 04:43] VITALS: BP 136/65
[2017-10-13] MEDS: NovoLOG Insulin Flexpen SUBQ SCH ×4 (06:53→20:56)
[2017-10-13 07:32] VITALS: BP 145/79
[2017-10-13] MEDS: Metoprolol 25mg tab ORAL SCH ×2 (07:59→20:48)
[2017-10-13] MEDS: Aspirin EC 81mg tab ORAL SCH (07:59)
[2017-10-13] MEDS: PAZEO BOTH EYES SCH (07:59)
[2017-10-13] MEDS: Heparin 5000 units/ml inj SUBQ SCH ×2 (08:00→20:52)
[2017-10-13 08:24] LABS: BASOPHILS % (AUTO) 0.7 % (0.0-2.0); EOSINOPHILS % (AUTO) 2.6 % (0.0-3.0); HEMATOCRIT 42.5 % (37.0-47.0); LYMPHOCYTES % (AUTO) 41.2 % (20.0-45.0); MEAN CORPUSCULAR VOLUME 92 FL (80-99); MONOCYTES % (AUTO) 6.4 % (1.0-10.0); NEUTROPHILS % (AUTO) 49.2 % (45.0-75.0); PLATELET COUNT 166 K/UL (150-450); RED BLOOD COUNT 4.62 M/UL (4.20-5.40); RED CELL DISTRIBUTION WIDTH 12.5 % (11.6-14.8); WHITE BLOOD COUNT 8.1 K/UL (4.8-10.8)
[2017-10-13 08:40] LABS: ANION GAP 7 mmol/L (5-15); BLOOD UREA NITROGEN 8 mg/dL (7-18); CALCIUM 8.4 MG/DL (8.5-10.1); CARBON DIOXIDE 29 MMOL/L (21-32); CHLORIDE 105 MMOL/L (98-107); POTASSIUM 3.5 MMOL/L (3.5-5.1); SODIUM 141 MMOL/L (136-145)
--- NOTE | 2017-10-13 11:03 | Pulmonology Progress Note ---
Assessment/Plan Problems: (1) Paroxysmal atrial fibrillation (2) Bronchitis (3) NSTEMI (non-ST elevated myocardial infarction) (4) History of hypertension Assessment/Plan feeling much better stress test done Findings: Resting SPECT images demonstrate a perfusion defect in the anteroseptal wall extending into the apex. Impression: Apical and anteroseptal wall resting defect, consistent with infarct awaiting cardiology recommendations dc planning if ok with cardiology, ? anticoagulation for paroxysmal afib? Subjective ROS Limited/Unobtainable: No Interval Events: one episode of afib from 5 am to 6 am Allergies: Coded Allergies: No Known Allergies (Unverified , 10/07/17) Objective Last 24 Hour Vital Signs Date Time Temp Pulse Resp B/P (MAP) Pulse Ox O2 Delivery O2 Flow Rate FiO2 10/13/17 07:59 82 145/79 10/13/17 07:48 90 10/13/17 07:32 97.5 82 20 145/79 94 Room Air 10/13/17 07:12 83 20 Room Air 21 10/13/17 04:43 97.5 74 20 136/65 94 Room Air 74 10/13/17 04:00 77 10/13/17 00:00 70 10/13/17 00:00 97.9 74 20 145/71 94 Room Air 74 10/12/17 22:51 83 150/63 10/12/17 20:00 97.7 83 23 150/63 94 Room Air 83 10/12/17 20:00 74 10/12/17 19:30 86 20 Room Air 21 10/12/17 16:00 97.5 91 18 130/72 97 Room Air 91 10/12/17 16:00 91 10/12/17 12:08 98.3 70 18 127/68 Room Air 70 10/12/17 12:00 69 Intake and Output 10/12/17 10/13/17 19:00 07:00 Intake Total 220 ml Balance 220 ml Intake Oral 220 ml # Voids 1 2 General Appearance: WD/WN HEENT: normocephalic, anicteric Respiratory/Chest: chest wall non-tender, normal breath sounds Breasts: no masses Cardiovascular: normal rate Abdomen: normal bowel sounds, soft, non tender Extremities: no cyanosis 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 Laboratory Tests 10/12/17 20:48: Vancomycin Level Trough 11.2 10/13/17 07:55: White Blood Count 8.1, Red Blood Count 4.62, Hemoglobin 14.0, Hematocrit 42.5, Mean Corpuscular Volume 92, Mean Corpuscular Hemoglobin 30.3, Mean Corpuscular Hemoglobin Concent 33.0, Red Cell Distribution Width 12.5, Platelet Count 166, Mean Platelet Volume 13.8H, Neutrophils (%) (Auto) 49.2, Lymphocytes (%) (Auto) 41.2, Monocytes (%) (Auto) 6.4, Eosinophils (%) (Auto) 2.6, Basophils (%) (Auto ) 0.7, Sodium Level 141, Potassium Level 3.5, Chloride Level 105, Carbon Dioxide Level 29, Anion Gap 7, Blood Urea Nitrogen 8, Creatinine 1.0, Estimat Glomerular Filtration Rate , Glucose Level 195H, Calcium Level 8.4L Current Medications Medications (Trade) Dose Ordered Sig/Hair Route PRN Reason Start Time Stop Time Status Last Admin Dose Admin Acetaminophen (Tylenol) 650 mg Q4H PRN ORAL Mild Pain/Temp > 100.5 10/09/17 11:45 11/08/17 11:44 10/09/17 10:25 Albuterol/ Ipratropium (Albuterol/ Ipratropium) 3 ml Q4H PRN HHN Shortness of Breath 10/10/17 15:45 10/15/17 15:44 Aspirin (Ecotrin) 81 mg DAILY ORAL 10/08/17 09:00 11/07/17 08:59 10/13/17 07:59 Atorvastatin Calcium (Lipitor) 10 mg BEDTIME ORAL 10/07/17 21:00 11/06/17 20:59 10/12/17 22:51 Cefepime HCl 2 gm/ Sodium Chloride 110 ml @ 220 mls/hr DAILY@1800 IV 10/07/17 18:00 10/14/17 17:59 10/12/17 17:24 Dextrose (Dextrose 50%) STAT PRN IV Hypoglycemia 10/07/17 15:45 11/06/17 15:44 Heparin Sodium (Porcine) (Heparin 5000 units/ml) 5,000 units EVERY 12 HOURS SUBQ 10/07/17 21:00 11/06/17 20:59 10/13/17 08:00 Insulin Aspart (NovoLOG) BEFORE MEALS AND HS SUBQ 10/07/17 18:30 11/06/17 18:29 10/13/17 06:53 Lidocaine (Xylocaine 1% MPF 5ml) 10 ml EVERY 4 HOURS PRN HHN cough 10/09/17 15:45 11/08/17 15:44 Lorazepam (Ativan 2mg/ml 1ml) 2 mg Q2H PRN IV For Anxiety 10/07/17 15:45 10/14/17 15:44 Metoprolol Tartrate (Lopressor) 25 mg Q12HR ORAL 10/07/17 21:00 11/06/17 20:59 10/13/17 07:59 Morphine Sulfate (Morphine Sulfate) 4 mg Q4H PRN IVP Severe Pain (Pain Scale 7-10) 10/07/17 15:45 10/14/17 15:44 Ondansetron HCl (Zofran) 4 mg Q6H PRN IVP Nausea & Vomiting 10/07/17 15:45 11/06/17 15:44 Patient Own Medication (Patient's Own Med) 1 ea DAILY BOTH EYES 10/09/17 20:00 11/08/17 19:59 10/13/17 07:59 Polyethylene Glycol (Miralax) 17 gm DAILYPRN PRN ORAL Constipation 10/07/17 15:45 11/06/17 15:44 Promethazine HCl/ Codeine (Phenergan with Codeine) 5 ml Q4H PRN ORAL For Cough 10/07/17 15:45 11/06/17 15:44 Vancomycin HCl (Vanco rx to dose) 1 ea DAILY PRN MISC PER RX PROTOCOL 10/07/17 17:00 11/06/17 16:59 Vancomycin HCl/ Dextrose 250 ml @ 166.667 mls/hr Q24H IVPB 10/10/17 22:00 10/15/17 21:59 10/12/17 23:03 JEFFREY FERGUSON Oct 13, 2017 11:03
[2017-10-13 11:20] VITALS: BP 118/61
--- NOTE | 2017-10-13 15:13 | General Progress Note ---
Assessment/Plan Problem List: (1) Asthma ICD Codes: J45.909 - Unspecified asthma, uncomplicated SNOMED: 278064065 (2) Hypercholesteremia ICD Codes: E78.00 - Pure hypercholesterolemia, unspecified SNOMED: 14985480 (3) NSTEMI (non-ST elevated myocardial infarction) ICD Codes: I21.4 - Non-ST elevation (NSTEMI) myocardial infarction SNOMED: 633897357 (4) Bronchitis ICD Codes: J40 - Bronchitis, not specified as acute or chronic SNOMED: 55939777 (5) History of hypertension ICD Codes: Z86.79 - Personal history of other diseases of the circulatory system SNOMED: 539777591 Status: stable, progressing, tolerating diet Assessment/Plan ot pt diet cardio f/u bp pain control cbc bmp am dc plan w hh Subjective Constitutional: Reports: weakness Allergies: Coded Allergies: No Known Allergies (Unverified , 10/07/17) All Systems: reviewed and negative except above Subjective sl chest pain sob Objective Last 24 Hour Vital Signs Date Time Temp Pulse Resp B/P (MAP) Pulse Ox O2 Delivery O2 Flow Rate FiO2 10/13/17 11:53 67 10/13/17 11:20 97.9 67 20 118/61 94 Room Air 10/13/17 07:59 82 145/79 10/13/17 07:48 90 10/13/17 07:32 97.5 82 20 145/79 94 Room Air 10/13/17 07:12 83 20 Room Air 21 10/13/17 04:43 97.5 74 20 136/65 94 Room Air 74 10/13/17 04:00 77 10/13/17 00:00 70 10/13/17 00:00 97.9 74 20 145/71 94 Room Air 74 10/12/17 22:51 83 150/63 10/12/17 20:00 97.7 83 23 150/63 94 Room Air 83 10/12/17 20:00 74 10/12/17 19:30 86 20 Room Air 21 10/12/17 16:00 97.5 91 18 130/72 97 Room Air 91 10/12/17 16:00 91 Intake and Output 10/12/17 10/13/17 19:00 07:00 Intake Total 220 ml Balance 220 ml Intake Oral 220 ml # Voids 1 2 Laboratory Tests 10/12/17 20:48: Vancomycin Level Trough 11.2 10/13/17 07:55: White Blood Count 8.1, Red Blood Count 4.62, Hemoglobin 14.0, Hematocrit 42.5, Mean Corpuscular Volume 92, Mean Corpuscular Hemoglobin 30.3, Mean Corpuscular Hemoglobin Concent 33.0, Red Cell Distribution Width 12.5, Platelet Count 166, Mean Platelet Volume 13.8H, Neutrophils (%) (Auto) 49.2, Lymphocytes (%) (Auto) 41.2, Monocytes (%) (Auto) 6.4, Eosinophils (%) (Auto) 2.6, Basophils (%) (Auto ) 0.7, Sodium Level 141, Potassium Level 3.5, Chloride Level 105, Carbon Dioxide Level 29, Anion Gap 7, Blood Urea Nitrogen 8, Creatinine 1.0, Estimat Glomerular Filtration Rate , Glucose Level 195H, Calcium Level 8.4L Height (Feet): 5 Height (Inches): 3.00 Weight (Pounds): 160 General Appearance: alert EENT: normal ENT inspection Neck: normal alignment Cardiovascular: normal peripheral pulses, normal rate, regular rhythm Respiratory/Chest: chest wall non-tender, lungs clear, normal breath sounds Abdomen: normal bowel sounds, non tender, soft Extremities: normal inspection Edema: no edema noted Arm (L), no edema noted Arm (R), no edema noted Leg (L), no edema noted Leg (R), no edema noted Pedal (L), no edema noted Pedal (R), no edema noted Generalized Neurologic: responsive, motor weakness Skin: normal pigmentation, warm/dry ROBERT LEONARDO Oct 13, 2017 15:13
--- NOTE | 2017-10-13 15:22 | Cardiac Electrophysiology PN ---
Assessment/Plan Status Narrative The myocardial perfusion scan demonstrates no fixed or reversible perfusion defects. LVEF estimated at 89% which is likely overestimated. Assessment/Plan 1. Troponin leak. Five troponins are all low level and between 0.1 and 0.5. CPK and CK-MB are both normal. Continue aspirin, Lopressor 25 bid, and statin. Her ejection fraction is also within normal range of 60%. Lexiscan Cardiolite nuclear stress test showed no ischemia or scar 2. Atrial fib with RVR. Converted to SR. Continue Metoprolol. 3. Hypertension.On Lopressor 4. Diabetes. 5. Shortness of breath, possible pneumonia, on Abx DW ROK to DC Subjective Subjective No chest pain or SOB .Stress test done that was non ischemic Objective Last 24 Hour Vital Signs Date Time Temp Pulse Resp B/P (MAP) Pulse Ox O2 Delivery O2 Flow Rate FiO2 10/13/17 11:53 67 10/13/17 11:20 97.9 67 20 118/61 94 Room Air 10/13/17 07:59 82 145/79 10/13/17 07:48 90 10/13/17 07:32 97.5 82 20 145/79 94 Room Air 10/13/17 07:12 83 20 Room Air 21 10/13/17 04:43 97.5 74 20 136/65 94 Room Air 74 10/13/17 04:00 77 10/13/17 00:00 70 10/13/17 00:00 97.9 74 20 145/71 94 Room Air 74 10/12/17 22:51 83 150/63 10/12/17 20:00 97.7 83 23 150/63 94 Room Air 83 10/12/17 20:00 74 10/12/17 19:30 86 20 Room Air 21 10/12/17 16:00 97.5 91 18 130/72 97 Room Air 91 10/12/17 16:00 91 Intake and Output 10/12/17 10/13/17 19:00 07:00 Intake Total 220 ml Balance 220 ml Intake Oral 220 ml # Voids 1 2 Laboratory Tests Test 10/12/17 20:48 10/13/17 07:55 Vancomycin Level Trough 11.2 ug/mL (5.0-12.0) White Blood Count 8.1 K/UL (4.8-10.8) Red Blood Count 4.62 M/UL (4.20-5.40) Hemoglobin 14.0 G/DL (12.0-16.0) Hematocrit 42.5 % (37.0-47.0) Mean Corpuscular Volume 92 FL (80-99) Mean Corpuscular Hemoglobin 30.3 PG (27.0-31.0) Mean Corpuscular Hemoglobin Concent 33.0 G/DL (32.0-36.0) Red Cell Distribution Width 12.5 % (11.6-14.8) Platelet Count 166 K/UL (150-450) Mean Platelet Volume 13.8 FL (6.5-10.1) H Neutrophils (%) (Auto) 49.2 % (45.0-75.0) Lymphocytes (%) (Auto) 41.2 % (20.0-45.0) Monocytes (%) (Auto) 6.4 % (1.0-10.0) Eosinophils (%) (Auto) 2.6 % (0.0-3.0) Basophils (%) (Auto) 0.7 % (0.0-2.0) Sodium Level 141 MMOL/L (136-145) Potassium Level 3.5 MMOL/L (3.5-5.1) Chloride Level 105 MMOL/L (98-107) Carbon Dioxide Level 29 MMOL/L (21-32) Anion Gap 7 mmol/L (5-15) Blood Urea Nitrogen 8 mg/dL (7-18) Creatinine 1.0 MG/DL (0.55-1.30) Estimat Glomerular Filtration Rate mL/min (>60) Glucose Level 195 MG/DL (74-106) H Calcium Level 8.4 MG/DL (8.5-10.1) L Objective HEAD AND NECK: No JVD. LUNGS: Coarse rhonchi. CARDIOVASCULAR: Regular S1 and S2 with no gallop or murmur. ABDOMEN: Soft. EXTREMITIES: No pitting edema. TRINIDAD ARNOLD Oct 13, 2017 15:22
[2017-10-13 15:45] VITALS: BP 120/70
[2017-10-13] MEDS: Cefepime HCl 2 GM in NS 110 ML IV SCH (17:03)
[2017-10-13 20:37] VITALS: BP 140/84
[2017-10-13] MEDS ORDERED: Lidocaine 1% MPF 10mg/ml 5ml HHN PRN (21:00)
[2017-10-13] MEDS ORDERED: Miralax 17gm pkt ORAL PRN (21:00)
[2017-10-13] MEDS ORDERED: Albuterol/Ipratropium 3ml neb HHN PRN (21:00)
[2017-10-13] MEDS ORDERED: Morphine Sulfate 4mg/ml Inj IVP PRN (21:00)
[2017-10-13] MEDS ORDERED: Promethazine/Codeine 5ml UD ORAL PRN (21:00)
[2017-10-13] MEDS ORDERED: LORazepam Inj 2mg/ml 1ml IV PRN (21:45)
[2017-10-13] MEDS ORDERED: Vancomycin 1250mg/D5W 250ml 250 ML IVPB SCH (22:00)
[2017-10-14] VITALS: BP 138/66
[2017-10-14 04:45] VITALS: BP 144/113
[2017-10-14] MEDS: NovoLOG Insulin Flexpen SUBQ SCH ×2 (06:01→12:03)
[2017-10-14 07:25] LABS: BASOPHILS % (AUTO) 0.7 % (0.0-2.0); EOSINOPHILS % (AUTO) 2.5 % (0.0-3.0); HEMATOCRIT 39.7 % (37.0-47.0); HEMOGLOBIN 12.9 G/DL (12.0-16.0); LYMPHOCYTES % (AUTO) 41.1 % (20.0-45.0); MEAN CORPUSCULAR VOLUME 92 FL (80-99); MONOCYTES % (AUTO) 9.3 % (1.0-10.0); NEUTROPHILS % (AUTO) 46.5 % (45.0-75.0); PLATELET COUNT 159 K/UL (150-450); RED BLOOD COUNT 4.34 M/UL (4.20-5.40); RED CELL DISTRIBUTION WIDTH 12.7 % (11.6-14.8); WHITE BLOOD COUNT 8.1 K/UL (4.8-10.8)
[2017-10-14 07:47] LABS: ANION GAP 8 mmol/L (5-15); BLOOD UREA NITROGEN 14 mg/dL (7-18); CALCIUM 8.9 MG/DL (8.5-10.1); CARBON DIOXIDE 28 MMOL/L (21-32); CHLORIDE 105 MMOL/L (98-107); POTASSIUM 3.5 MMOL/L (3.5-5.1); SODIUM 141 MMOL/L (136-145)
[2017-10-14 08:00] VITALS: BP 137/73
[2017-10-14] MEDS: Heparin 5000 units/ml inj SUBQ SCH (08:34)
[2017-10-14] MEDS: Metoprolol 25mg tab ORAL SCH (08:38)
[2017-10-14] MEDS: PAZEO BOTH EYES SCH ×2 (08:38→08:53)
[2017-10-14] MEDS ORDERED: Aspirin EC 81mg tab ORAL SCH (09:00)
--- NOTE | 2017-10-14 11:38 | General Progress Note ---
Assessment/Plan Problem List: (1) Asthma ICD Codes: J45.909 - Unspecified asthma, uncomplicated SNOMED: 090800510 (2) Hypercholesteremia ICD Codes: E78.00 - Pure hypercholesterolemia, unspecified SNOMED: 86492638 (3) NSTEMI (non-ST elevated myocardial infarction) ICD Codes: I21.4 - Non-ST elevation (NSTEMI) myocardial infarction SNOMED: 782351778 (4) Bronchitis ICD Codes: J40 - Bronchitis, not specified as acute or chronic SNOMED: 13320581 (5) History of hypertension ICD Codes: Z86.79 - Personal history of other diseases of the circulatory system SNOMED: 473873010 Status: stable, progressing, tolerating diet Assessment/Plan ot pt diet cardio f/u bp pain control dc w hh Subjective Constitutional: Reports: weakness Allergies: Coded Allergies: No Known Allergies (Unverified , 10/07/17) All Systems: reviewed and negative except above Subjective sitting on bed Objective Last 24 Hour Vital Signs Date Time Temp Pulse Resp B/P (MAP) Pulse Ox O2 Delivery O2 Flow Rate FiO2 10/14/17 08:38 85 137/73 10/14/17 08:00 97.9 85 17 137/73 94 Room Air 10/14/17 07:46 92 18 21 10/14/17 04:45 98.1 76 20 144/113 94 Room Air 10/14/17 00:00 98.0 64 18 138/66 95 10/14/17 00:00 95 Room Air 10/13/17 20:48 75 140/84 10/13/17 20:37 98.2 75 20 140/84 93 10/13/17 20:00 94 Room Air 10/13/17 19:30 74 20 Room Air 21 10/13/17 16:02 71 10/13/17 15:45 98.0 70 20 120/70 94 Room Air 10/13/17 11:53 67 Intake and Output 10/13/17 10/14/17 19:00 07:00 Intake Total 940 ml 650.000 ml Balance 940 ml 650.000 ml Intake Oral 720 ml 400 ml IV Total 220 ml 250.000 ml # Voids 3 1 # Bowel Movements 1 Laboratory Tests 10/14/17 05:00: White Blood Count 8.1, Red Blood Count 4.34, Hemoglobin 12.9, Hematocrit 39.7, Mean Corpuscular Volume 92, Mean Corpuscular Hemoglobin 29.7, Mean Corpuscular Hemoglobin Concent 32.5, Red Cell Distribution Width 12.7, Platelet Count 159, Mean Platelet Volume 12.6H, Neutrophils (%) (Auto) 46.5, Lymphocytes (%) (Auto) 41.1, Monocytes (%) (Auto) 9.3, Eosinophils (%) (Auto) 2.5, Basophils (%) (Auto ) 0.7, Sodium Level 141, Potassium Level 3.5, Chloride Level 105, Carbon Dioxide Level 28, Anion Gap 8, Blood Urea Nitrogen 14, Creatinine 1.0, Estimat Glomerular Filtration Rate , Glucose Level 175H, Calcium Level 8.9 Height (Feet): 5 Height (Inches): 3.00 Weight (Pounds): 160 General Appearance: alert EENT: normal ENT inspection Neck: non-tender, normal alignment, supple Cardiovascular: normal peripheral pulses, normal rate, regular rhythm Respiratory/Chest: chest wall non-tender, lungs clear, normal breath sounds Abdomen: normal bowel sounds, non tender, soft Extremities: normal inspection Edema: no edema noted Arm (L), no edema noted Arm (R), no edema noted Leg (L), no edema noted Leg (R), no edema noted Pedal (L), no edema noted Pedal (R), no edema noted Generalized Neurologic: responsive, motor weakness Skin: normal pigmentation, warm/dry ROBERT LEONARDO Oct 14, 2017 11:38
[2017-10-14] MEDS ORDERED: ASPIRIN EC81 MG ORAL (11:50)
[2017-10-14] MEDS ORDERED: LOPRESSOR25 M1 ORAL (11:50)
[2017-10-14 12:00] VITALS: BP 140/67
[2017-10-14] MEDS ORDERED: FAMOTIDINE40 MG ORAL (13:05)
[2017-10-14] MEDS ORDERED: NS 500ML ONE (13:34)
[2017-10-14] MEDS ORDERED: Tubing IV Secondary IV ONE (13:34)
--- NOTE | 2017-10-14 14:39 | Cardiology Report ---
APPROVED REPORT EXAM: Two-dimensional and M-mode echocardiogram with Doppler and color Doppler. INDICATION LV FUNCTION M-Mode DIMENSIONS IVSd1.9 (0.7-1.1cm)Left Atrium (MM)3.5 (1.6-4.0cm) LVDd4.0 (3.5-5.6cm)Aortic Root3.6 (2.0-3.7cm) PWd0.9 (0.7-1.1cm)Aortic Cusp Exc.2.0 (1.5-2.0cm) IVSs2.0 cm LVDs2.7 (2.5-4.0cm) PWs1.9 cm Normal left ventricular chamber size, systolic function and wall motion. Left ventricular ejection fraction estimated to be 60%. Mild left ventricular hypertrophy by 2-D. No evidence of pericardial effusion All other cardiac chamber size are within normal limits. Thickened mitral valve leaflets with normal excursion. Mitral annulus and aortic root calcification. Pulmonic valve are not well visualized . Normal tricuspid valve structure. IVC at normal size with physiologic collapse . A color flow and spectral Doppler study was performed and revealed: No aortic regurgitation. Trace tricuspid regurgitation. Normal left ventricular function. Tricuspid systolic velocities suggests peak right ventricular systolic pressure of 21 mmHg . No Pulmonic regurgitation present.
[2017-10-14] MEDS ORDERED: Cefepime HCl 2 GM in NS 110 ML IV SCH (18:00)
--- NOTE | 2017-10-16 13:17 | Discharge Summary ---
Discharge Summary Hospital Course Date of Admission Oct 07, 2017 at 15:10 Date of Discharge Oct 14, 2017 at 13:35 Admitting Diagnosis ACS / NSTEMI HPI Narda Maguire is a 72 year old female who was admitted on Oct 07, 2017 at 15 :10 for Acute Coronary Syndrome,Non St Elevation- Hospital Course [id number] Discharge Discharge Disposition Patient was discharged to Home with Home Health(06) Discharge Diagnoses: Jonelle Graham NP Oct 16, 2017 13:17
--- NOTE | 2017-10-17 00:45 | Discharge Summary 2 SIG ---
DATE OF ADMISSION: 10/07/2017 DATE OF DISCHARGE: 10/14/2017 CONSULTANTS: 1. Agus Reed M.D. 2. Christian Yen M.D. BRIEF HOSPITAL COURSE: The patient is a 72-year-old female, who lives at home, presented to [place] for complaints of chest pain, which was described to be located substernally and described to be aching in nature. She complained of cough and congestion and had respiratory illness for the past month. She has medical history significant for diabetes mellitus and hypertension. On evaluation at ED, she was noted to have elevated troponin 0.132. Chest x-ray showed borderline cardiomegaly. EKG showed sinus tachycardia with a Q-wave in V1. She was given aspirin and subcutaneous Lovenox. She was then admitted to telemetry for evaluation of bronchitis and possible ACS. Cardiac troponins were monitored. She was given respiratory treatments and p.r.n. nebulization. She was given aspirin, Lipitor, and metoprolol 25 mg q.12 hours. She had an echocardiogram done, which showed ejection fraction 60% with no pericardial effusion and no aortic regurgitation. Influenza A and B were negative. She was given cefepime and vancomycin empirically. She underwent a Lexiscan Cardiolite stress test that showed no ischemia. She was then cleared for discharge and the patient was discharged home with home health. FINAL DIAGNOSES: 1. Elevated troponin, likely troponin leak, possible [id number] myocardial infarction. 2. Acute bronchitis. 3. Hypertension. 4. Diabetes mellitus. 5. Atrial fibrillation with rapid ventricular response converted to sinus. 6. Hypertension. DISPOSITION: The patient was discharged home with home health. DISCHARGE MEDICATIONS: Refer to medication list. DISCHARGE INSTRUCTIONS: Follow up with Dr. Chaudhary's office on 10/22/2017 at 9:30 a.m. Jovi Chaudhary D.O. I have been assigned to dictate discharge summary on this account and I was not involved in the patient's management. Jonelle Graham N.P. DR: KENDALL JOB#: [id number] CC:
--- NOTE | 2017-10-17 16:11 | Cardiology Report ---
APPROVED REPORT EKG Measurement Heart [id number] Normal sinus rhythm Low voltage QRS Borderline ECG
--- NOTE | 2017-10-17 16:16 | Cardiology Report ---
APPROVED REPORT EKG Measurement Heart [id number] Sinus tachycardia Low voltage QRS Septal infarct, age undetermined Abnormal ECG
== END 2017-10-14 13:35 | disposition home health service (06) | DRG 203 ==
LOC: EDBD 12:17 → EMR 12:50 → EDBEDREQ 14:30 → 2E 15:10 → EDBEDREQ 15:38 → 2E 10-10 11:41 → 4E 10-13 20:30
DX: J20.9 Acute bronchitis, unspecified (principal); I48.91 Unspecified atrial fibrillation; E11.9 Type 2 diabetes mellitus without complications; I10 Essential (primary) hypertension; E78.5 Hyperlipidemia, unspecified; R79.89 Other specified abnormal findings of blood chemistry
CPT/HCPCS: 36415; 71045; 78451; 78452; 80048; 80053; 80061; 80069; 80202; 81003; 82550; 82553; 82962; 83605; 83880; 84439; 84443; 84484; 85025; 85610; 85730; 86710; 87040; 93005; 93017; 93306; 94664; 99285; J1815; J2785; J7620; J8499